=== PATIENT | male | born 1960 | race Caucasian/White ===

== ENCOUNTER 2020-12-11 09:15 | Inpatient (IN) | payer OTHER, SELFPAY ==
[2020-12-11] VITALS (35 sets, daily range): BP systolic 92–121; BP diastolic 52–68; PULSE 50–78; RESP 11–24; TEMP 36.2–36.8; O2SAT 97–100; BMI 25.0; BMI 23.3
--- NOTE | ~2020-12-11 | CT_ITS ---
EXAMINATION: CT brain wo con EXAM DATE: 12/11/2020 09:33 INDICATION: Altered mental status. Unresponsive at work. TECHNIQUE: Spiral CT of the head was performed without contrast. Axial, coronal and sagittal images were reviewed. The dose-length product (DLP) for this examination was 605.33 mGy-cm. The exposure w as tailored according to patient size, and iterative reconstruction (ASIR) was used as additional dos e reduction technique. There is no prior study for comparison. FINDINGS: There is right temporal occipital gyral calcification with ipsilateral volume loss. Differe ntial diagnosis includes Sturge-Dennison syndrome, other less common phakomatoses, prior leptomeningeal inflammation or infection. There is left frontal lobe periventricular white matter small old infarction measuring about 1 cm. T here is no acute intraparenchymal hemorrhage. No evidence of intraparenchymal brain mass lesion. No evidence of acute infarction. Please note that initial head CT has limited sensitivity for small or acute infarctions. There is mild to moderate periventricular and subcortical hypodensity, nonspecifi c but probably related to small vessel ischemic disease. There is mild prominence of the sulci and ventricles related to cerebral atrophy. There is intracranial carotid arteriosclerosis. There are no extra-axial collections. There is no mass effect or midline shift. The orbits are unremarkable. Soft tissue is unremarkable. The visualized sinuses and mastoid air cells are well aerated. IMPRESSION: 1. Right temporal occipital gyral calcification and volume loss, chronic finding. Some differential considerations listed above. 2. 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 3. Chronic age related findings. Reviewed, dictated and finalized at location A. STRIP FINISHER IMPRESSION: 1. Right temporal occipital gyral calcification and volume loss, chronic findi ng. Some differential considerations listed above. 2. 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 3. Chronic age related findings.
--- NOTE | ~2020-12-11 | XR_ITS ---
EXAMINATION: XR chest 1V portable EXAM DATE: 12/11/2020 09:57 INDICATION: Transient alteration of awareness. TECHNIQUE: Portable AP frontal chest x-ray was obtained. There is no prior study for comparison. FINDINGS: The lungs are clear. There are no pleural effusions. Cardiac silhouette is prominent but magnified on this AP technique. There is no pneumothorax suspected. The bones and soft tissues are unremarkable. IMPRESSION: No acute cardiopulmonary findings. Reviewed, dictated and finalized at location A. MANAGEMENT COORDINATOR
--- NOTE | ~2020-12-11 | MR_ITS ---
EXAMINATION: MR brain/brain stem wo con EXAM DATE: 12/12/2020 09:57 INDICATION: History of pediatric seizures, which resolved and then recent seizure. Abnormal head CT. TECHNIQUE: Magnetic resonance imaging (MRI) of the brain/brain stem obtained without contrast. Sagitt al T1, axial diffusion, gradient echo (T2*), T1, T2, FLAIR sequences obtained. Correlation is made t o head CT from 12/11/2020. 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 There is an old small left periventricular frontal lobe white matter i nfarction. Punctate old left thalamic lacunar infarction. There are no areas of restricted diffusion to suggest acute infarction. Mild to moderate microangiopathy. Mild ethmoid mucoperiosteal thickening . No extra-axial collections. There are no suspicious marrow signal abnormalities. The orbits and sof t tissues are unremarkable. IMPRESSION: 1. Old small left frontal lobe and punctate old left thalamic lacunar infarctions. 2. Right occipital temporal gyral calcifications better seen on CT, appearance most consistent with Sturge-Dennison syndrome. 3. No acute findings. Reviewed, dictated and finalized at location A. TES INSTRUCTOR IMPRESSION: 1. Old small left frontal lobe and punctate old left thalamic lacunar infarcti ons. 2. Right occipital temporal gyral calcifications better seen on CT, appearance most consistent with Sturge-Dennison syndrome. 3. No acute findings.
[2020-12-11] MEDS: ONDANSETRON INJ 4 MG/2 ML VIAL IV PUSH (09:15)
--- NOTE | 2020-12-11 09:17 | ECG_ITS ---
Measurements Intervals [place] Rate: 75 P: 50 MA: 128 QRS: 43 QRSD: 105 T: 90 QT: 396 QTc: 444 Interpretive Statements SINUS RHYTHM POSSIBLE LEFT ATRIAL ENLARGEMENT INCOMPLETE RIGHT BUNDLE BRANCH BLOCK LEFT VENTRICULAR HYPERTROPHY AND ST-T CHANGE BORDERLINE T WAVE ABNORMALITY- ANTEROLAT/HIGH LAT LEADS BASELINE WANDER- V3 BORDERLINE ECG Electronically Signed On 12-17-2020 7:05:22 MOLDER APPRENTICE by Daniel Srivastava D.O.
[2020-12-11 09:45] LABS: Alveolar/Arterial O2 Gradient 12.3 mmHg; Base Excess ABG -4.5 mEq/l (+/-2.0); Carboxyhemoglobin 0.3 % THb (0-2.0); Fractional Inspired Oxygen 21 %; HCO3 ABG 19.4 mEq/l (22.0-26.0); Methemoglobin ABG 0.3 %THb (0-1.5); Oxygen Content ABG 17.6 %vol (16.0-22.0); Oxygen Saturation ABG 97.6 % (95.0-100.0); Oxyhemoglobin 96.6 % THb (90.0-100.0); PCO2 ABG 32.1 mmHg (35.0-45.0); PO2 FiO2 Ratio Arterial Blood 4.71 %; Reduced Hemoglobin 2.8 %THb (0-5.0); Total Hemoglobin 12.9 g/dL (12.0-18.0); pH ABG 7.399 (7.350-7.450)
[2020-12-11 09:46] LABS: Device ROOM AIR; Site Drawn LEFT BRACHIAL
[2020-12-11 09:53] LABS: Basophils Percent Auto 0.5 % (0.2-1.2); Eosinophils Percent Auto 0.2 % (0-4.4); Hematocrit 41.6 % (42.0-52.0); Hemoglobin 13.5 g/dL (14.0-18.0); Immature Granulocyte Absolute 0.04 K/mm3 (0.00-0.031); Immature Granulocyte Percent A 0.5 % (0-0.5); Lymphocytes Percent Auto 13.6 % (18.3-44.2); Mean Corpuscular HGB Conc 32.5 g/dl (32-36); Mean Corpuscular Hemoglobin 30.6 pg (26-34); Mean Corpuscular Volume 94.3 fl (80-100); Monocytes Absolute Auto 0.6 K/mm3 (0.1-0.6); Monocytes Percent Auto 6.8 % (2.6-8.5); Neutrophils Absolute Auto 6.3 K/mm3 (1.3-6.7); Neutrophils Percent Auto 78.4 % (45.5-73.1); Platelet Count Result 276 k/mm3 (150-375); Red Blood Count 4.41 M/mm3 (4.6-6.20); White Blood Count 8.1 K/mm3 (4.5-10.0)
[2020-12-11 09:59] LABS: Add Urine Microscopic? YES; Appearance Urine Clear (Clear); Bilirubin Urine Negative (Negative); Blood Urine Negative (Negative); Color Urine Yellow (Yellow); Glucose Urine UA 1+ mg/dL (Negative); Ketones Urine Trace mg/dL (Negative); Leukocyte Esterase Ur Negative LEU/UL (Negative); Mucus Urine Rare /lpf; Nitrate Urine Negative (Negative); Protein Urine 2+ mg/dL (Negative); RBC Urine 0-2 /hpf (0-2); Specific Grav Ur 1.021 (1.001-1.035); Squamous Epithelial Cell Urine Rare /hpf (Few); Urobilinogen Urine Negative mg/dL (<2.0); WBC Urine 0-3 /hpf
[2020-12-11] MEDS: SODIUM CHLORIDE 0.9% IV 1,000 ML 999 ML IV CONT (10:01)
--- NOTE | 2020-12-11 10:02 | PC.NURSE ---
PT RESPONSIVE ONLY TO PAINFUL STIMULI, UNABLE TO OBTAIN, AX, MEDICATIONS OR HISTORY.
[2020-12-11 10:05] LABS: Prothrombin Time 13.7 Seconds (11.1-14.7)
[2020-12-11 10:06] LABS: Alanine Aminotransferase 24 U/L (4-50); Albumin Level 4.3 g/dL (3.5-5.1); Alkaline Phosphatase 91 U/L (38-126); Anion Gap 10 mmol/L (8-16); Aspartate Amino Transferase 34 U/L (17-59); Bilirubin,Total 0.6 mg/dL (0.2-1.3); Blood Urea Nitrogen 19 mg/dL (9-20); Calcium 8.8 mg/dL (8.4-10.2); Carbon Dioxide 21 mmol/L (22-30); Chloride 107 mmol/L (98-107); Estimated CRCL calculation 63 ml/min; Estimated Glomerular Filt Rate > 60; Glucose 213 mg/dL (75-110); Partial Thromboplastin Time 24.3 SECONDS (22.3-36.8); Potassium 3.7 mmol/L (3.4-5.0); Sodium 138 mmol/L (137-145)
[2020-12-11 10:14] LABS: Beta-Hydroxybutyrate/Acetoacetate 0.07 mmol/L (0.02-0.27)
[2020-12-11 10:27] LABS: Ammonia < 9 umol/L (9-30)
[2020-12-11 10:29] LABS: Ethanol < 10 mg/dL (<10)
[2020-12-11 10:39] LABS: Amphetamine Screen Urine Negative (Negative); Barbiturate Screen Urine Negative (Negative); Benzodiazepines Screen Urine Negative (Negative); Cannabinoid Screen Urine Negative (Negative); Cocaine Screen Urine Negative (Negative); Methadone Screen Urine Negative (Negative); Opiate Screen Urine Negative (Negative); Phencyclidine Screen Urine Negative (Negative)
[2020-12-11 10:40] LABS: Glucose Point of Care 201 (65-105)
--- NOTE | 2020-12-11 10:46 | PC.NURSE ---
ERP Amy at bedside for update, at this time pt responding to voice and answers questions appropriatly. see neuro assessment.
--- NOTE | 2020-12-11 11:25 | ED.GENADULT ---
HPI - General Adult General Chief complaint: Unspecified Stated complaint: unresponsive Time Seen by Provider: 12/11/20 09:16 History of Present Illness HPI narrative: Patient is a 60-year-old gentleman who presents the emergency department with chief complaint of altered mental status. Patient was at work today and found by other employees sitting in his desk foaming at the mouth. The patient had no generalized shaking when EMS arrived they found him to have constricted pupils and was minimally responsive. EMS assisted with bag valve ventilations on the patient initially as he had a very slow respiratory rate. He was given Narcan with no response. Upon arrival to the emergency department the patient did start to answer some questions and start moving all extremities. The patient then proceeded to sit up was somewhat confused initially but then started to be able to answer questions. Currently the patient states that he had a headache earlier this week and now just feels tired and sleepy. Related Data Home Medications Medication Instructions Recorded Confirmed atropine drp 12/11/20 Allergies Allergy/AdvReac Type Severity Reaction Status Date / Time No Known Allergies Allergy Verified 12/11/20 10:49 Review of Systems Review of Systems: Narrative: A 10 system review of systems was completed on the patient and is negative except for what is stated in the HPI. Nursing and ancillary documentation was reviewed. PMFSH Comments Patient reports that he had a seizure in the 1960s but currently is not on any medications and knows of any current medical problems Social history the patient is employed at the local [employer] Exam Narrative: Exam Narrative: GENERAL: Well-appearing, well-nourished, and in no acute distress. HEAD: Normocephalic, atraumatic. EYES: PERRLA and EOMI. ENT: Nares clear, no rhinorrhea or epistaxis. Mucous membranes moist. NECK: Supple. CHEST: Clear to auscultation. No respiratory distress. HEART: Regular rate and rhythm. No murmur heard. Normal peripheral pulses. ABDOMEN: Soft, nontender, nondistended, normal active bowel sounds. EXTREMITIES: Normal range of motion. No edema. SKIN: Warm, dry, no rash. NEURO: No focal deficits. Alert and oriented x3. PSYCH: Normal mood and affect. Course Course Emergency Course: Patient was initially very confused and very slow to respond felt this is most likely a postictal type state. CT head shows no evidence of acute intercranial pathology toxicology studies were also within normal limits. Vital Signs Vital signs: Vital Signs Temperature 36.8 C 12/11/20 09:10 Pulse Rate 67 12/11/20 09:10 Respiratory Rate 14 12/11/20 09:10 Blood Pressure 98/63 L 12/11/20 09:10 Pulse Oximetry 99 12/11/20 09:10 Temperature 36.8 C 12/11/20 09:10 Pulse Rate 68 12/11/20 11:28 Respiratory Rate 15 12/11/20 11:28 Blood Pressure 95/57 L 12/11/20 11:28 Pulse Oximetry 99 12/11/20 11:28 Medical Decision Making Vital Signs Vital Signs: Vital Signs Temperature 36.8 C 12/11/20 09:10 Pulse Rate 67 12/11/20 09:10 Respiratory Rate 14 12/11/20 09:10 Blood Pressure 98/63 L 12/11/20 09:10 Pulse Oximetry 99 12/11/20 09:10 Temperature 36.8 C 12/11/20 09:10 Pulse Rate 68 12/11/20 11:28 Respiratory Rate 15 12/11/20 11:28 Blood Pressure 95/57 L 12/11/20 11:28 Pulse Oximetry 99 12/11/20 11:28 Lab Data Result diagrams: 12/11/20 09:37 12/11/20 09:37 Labs: Lab Results 12/11/20 12/11/20 12/11/20 Range/Units 09:13 09:37 09:37 WBC 8.1 (4.5-10.0) K/mm3 RBC 4.41 L (4.6-6.20) M/mm3 Hgb 13.5 L (14.0-18.0) g/dL Hct 41.6 L (42.0-52.0) % MCV 94.3 (80-100) fl MCH 30.6 (26-34) pg MCHC 32.5 (32-36) g/dl RDW 13.0 (11.5-14.5) % Plt Count 276 (150-375) k/mm3 MPV 10.0 (7.4-10.4) fl Immature Gran % (Auto) 0.5 (0-0.5) % Neut % (Auto)
[2020-12-11] MEDS: levETIRAcetam 1000MG/NACL100ML 1,000 MG/100 ML BAG 400 MG IVPB (11:27)
--- NOTE | 2020-12-11 13:20 | PM.IMHP ---
H&P: HPI History of Present Illness Date/Time: 12/11/20 13:20 Chief Complaint: Unresponsive episode. Narrative: This is a 60-year-old male with history of single seizure in the who presented to the emergency department earlier this morning via EMS from his place of employment for evaluation after he was found unresponsive by coworkers. He is somnolent at the time my evaluation but is alert and oriented x4 and is able to provide a pretty good history. Unfortunately he does not remember what occurred this morning and thus some of the following information is obtained via his electronic medical records. it is my understanding that the patient called off of work the past 2 days due to a headache, which is very unusual for him. Today he was present at work and was found not long prior to arrival sitting in a chair, unresponsive and ?foaming at the mouth.? On EMS arrival he was not really responsive with hypopnea and pinpoint pupils. Narcan was given with no response. After some time he began to move around in the emergency department and eventually set up but was confused and appeared to be postictal. Again he is alert oriented at the time my evaluation in the only complaint he has is of fatigue and a mild headache. He denies fever, chills, sweats, neck ache, cold and flu symptoms, vertigo, focal weakness, paresthesias, fall, chest pain, pleuritic pain, and shortness of breath. He does not drink alcohol or take benzodiazepines. No new medications. Review of Systems Review of Systems: Narrative: Twelve systems were reviewed with pertinent positives and negatives as per HPI. No chest pain or shortness of breath. He denies nausea, vomiting, diarrhea. No dysuria. 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 Except as documented, all other systems were reviewed and are negative. PENDING SALE TO [facility] Past Medical History Medical History (Updated 12/11/20 @ 21:49 by Garima Perez PA-C) Glaucoma Seizure Single seizure in the . Surgical History Surgical History (Updated 12/11/20 @ 21:43 by Garima Perez PA-C) History of tonsillectomy Family History Family History (Updated 12/11/20 @ 21:44 by Garima G. Gerling, PA-C) Other No significant family history Social History Social History (Updated 12/11/20 @ 21:44 by Garima Perez PA-C) Social History: The patient lives alone in [place]. Lifelong nonsmoker. No alcohol or illicit substance use. 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 He designates his sister, Bety Wang, as his surrogate decision maker and he wishes to be a full code. Spiritual care concerns: No Meds Home Medications and Allergies Home Medications Medication Instructions Recorded Confirmed Type latanoprost 1 drp RIGHTEYE HS 12/11/20 12/11/20 History Allergies Allergy/AdvReac Type Severity Reaction Status Date / Time No Known Allergies Allergy Verified 12/11/20 14:44 Vital Signs Vital Signs - 24 hr 12/11/20 09:10 12/11/20 09:17 12/11/20 09:40 Temperature 98.2 F Pulse Rate 67 78 64 Respiratory Rate 14 14 16 Blood Pressure 98/63 L Pulse Oximetry 99 99 100 12/11/20 09:45 12/11/20 09:46 12/11/20 09:47 Temperature Pulse Rate 68 68 67 Respiratory Rate 11 L 16 13 Blood Pressure 121/65 Pulse Oximetry 100 100 100 12/11/20 10:00 12/11/20 10:01 12/11/20 10:17 Temperature Pulse Rate 61 61 50 L Respiratory Rate 18 16 13 Blood Pressure 93/60 L Pulse Oximetry 100 100 100 12/11/20 10:45 12/11/20 11:00 12/11/20 11:01 Temperature Pulse Rate 58 L 59 L 55 L Respiratory Rate 13 15 12 Blood Pressure 92/59 L Pulse Oximetry 100 99 97 12/11/20 11:23 12/11/20 11:28 12/11/20 11:30 Temperature Pulse Rate 56 L 68 54 L Respiratory Rate 15 15 13 Blood Pressure 95/57 L Pulse Oximetry 99 99 100 12/11/20 11:31 12/11/20 11:45 12/11/20 11:46
--- NOTE | 2020-12-11 14:26 | ADMGEN ---
This patient, Yordan Wang, was admitted to Medical Room 340-01. Patient/family oriented to hospital policies and general routines including ID bracelet, bed and alarms, visiting hours, pain management, procedures, bathroom and other care routines, personal items, smoking policy, room service/diet, and visiting hours. Information on how to activate the Rapid Response Team has been discussed. Patient/Family are encouraged to report perceived risks to care and to ask questions if they do not understand what they are told or what they should do.
[2020-12-11] MEDS: levETIRAcetam 500 MG TABLET PO (22:05)
[2020-12-11] MEDS: LATANOPROST 0.005% OP SOLN 2.5 ML BTL 1 DROP RIGHT EYE (22:06)
[2020-12-12] VITALS (9 sets, daily range): BP systolic 102–152; BP diastolic 50–77; PULSE 53–99; RESP 14–16; TEMP 36.5–37; O2SAT 97–100
[2020-12-12 06:41] LABS: Hematocrit 37.6 % (42.0-52.0); Hemoglobin 12.4 g/dL (14.0-18.0); Mean Corpuscular Hemoglobin 30.5 pg (26-34); Mean Corpuscular Volume 92.6 fl (80-100); Mean Platelet Volume 10.3 fl (7.4-10.4); Platelet Count Result 231 k/mm3 (150-375); Red Blood Count 4.06 M/mm3 (4.6-6.20); Red Cell Distribution Width 12.9 % (11.5-14.5); White Blood Count 10.3 K/mm3 (4.5-10.0)
[2020-12-12 07:06] LABS: Alanine Aminotransferase 19 U/L (4-50); Albumin Level 3.7 g/dL (3.5-5.1); Alkaline Phosphatase 64 U/L (38-126); Anion Gap 5 mmol/L (8-16); Aspartate Amino Transferase 41 U/L (17-59); Bilirubin,Total 0.8 mg/dL (0.2-1.3); Blood Urea Nitrogen 15 mg/dL (9-20); Calcium 8.9 mg/dL (8.4-10.2); Carbon Dioxide 26 mmol/L (22-30); Chloride 106 mmol/L (98-107); Estimated CRCL calculation 66 ml/min; Estimated Glomerular Filt Rate > 60; Glucose 90 mg/dL (75-110); Potassium 3.8 mmol/L (3.4-5.0); Sodium 137 mmol/L (137-145)
[2020-12-12] MEDS: levETIRAcetam 500 MG TABLET PO ×2 (08:47→20:25)
--- NOTE | 2020-12-12 10:44 | PM.IMPN ---
Progress Note: A&P Assessment and Plan (1) Altered mental status: Qualifiers: Altered mental status type: unspecified Qualified Code(s): R41.82 - Altered mental status, unspecified Code(s): R41.82 - Altered mental status, unspecified Status: Acute (2) Unresponsive episode: Code(s): R41.89 - Other symptoms and signs involving cognitive functions and awareness Status: Acute (3) Seizure: Code(s): R56.9 - Unspecified convulsions Status: Acute (4) Hyperglycemia: Code(s): R73.9 - Hyperglycemia, unspecified Status: Acute (5) Glaucoma: Code(s): H40.9 - Unspecified glaucoma Status: Acute (6) DVT prophylaxis: Code(s): Z29.9 - Encounter for prophylactic measures, unspecified Status: Acute Assessment and Plan: SCDs Additional Plan The patient was brought to the emergency department after he was found unresponsive and ?foaming at the mouth? in a chair at work on 12/11. Given his confusion upon waking and remote history of seizure, it was suspect he probably had another seizure and was postictal in the emergency department. UDS negative. He denies excessive alcohol use. UA unremarkable. Brain CT showed a chronic finding of right temporal occipital gyral calcification and volume loss, and old left frontal lobe periventricular white matter small old infarction measuring about 1 cm, and chronic age related findings. 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 He has been started on Keppra and Dr. Padilla (neurology) was consulted. The patient was monitored on telemetry but no cardiac dysrhythmia noted. Echocardiogram and brain MRI pending. Glucose elevated at 213 on admission but felt to be stress response. Repeat glucose nomral. A1c 5.0. TSH normal. MRI brain showing no acute findings but does show old small left frontal lobe and punctate old left thalamic lacunar infarctions and right occipital temporal gyral calcifications (consistent with Sturge-Dennison syndrome). Echo showing EF 65-70%, Grade 1 diastolic dysfunction and severe aortic valve stenosis with valve area 0.5-0.7cm2. Also a questionable mobile mass on the Mitral valve. Cardiology consult for possible LUANNE to further evaluate valves. Check BCx. Spoke with sister and she was informed of these findings. She states the patient has been having increasing SOB with exertion over the past 4-5 months. Subjective Date/time seen: 12/12/20 10:44 Interval history: Date of service 12/12 60-year-old male with remote history of seizure brought to the emergency room after being found unresponsive. Spoke with sister on the phone with patient's permission. Patient had a fall with close head injury in 1964r. It sounds as if he had traumatic brain injury. Sister states he was having 15-20 seizures a day. His last seizure was when he was 7 to 9 years old. Patient does not drive because of his glaucoma. He normally walks unassisted. No history of stroke. No problems overnight. He was been up walking the bathroom earlier today. Denies any weakness. Exam Narrative: Exam Narrative: AF 98.6 152/76 99 14 99% ra Gen - NARD HEENT -large port-wine stain involving majority of his face and into the neck Chest - CTA bilaterally, nml RR CV - RRR S1/S2; Tele showing no significant dysrhythmias Abd - Soft, NT/ND, Positive BS Ext - No pedal edema, 2+ DP bilaterally Neuro - Alert and oriented x4. Nonfocal exam. Psych - Nml mood and affect Skin - Warm and dry; large port wine stain right buttock extending lateral aspect to right foot. Objective Data Vital Signs Vital Signs: Vital Signs - 24 hr 12/11/20 10:45 12/11/20 11:00 12/11/20 11:01 Temperature Pulse Rate 58 L 59 L 55 L Respiratory Rate 13 15 12 Blood Pressure 92/59 L Pulse Oximetry 100 99 97 12/11/20 11:23 12/11/20 11:28 12/11/20
--- NOTE | 2020-12-12 16:36 | PC.NURSE ---
1500 Patient s sister, Bety Wang, took with her the patient s wallet and all cards in it including his identification card. She was given permisson to visit because she voiced that he is mentally challenged and takes care of him regarding his health.
[2020-12-12] MEDS: BRIMONIDINE TARTRATE 0.2% OP SOLN 5 ML BTL 1 DROP RIGHT EYE (20:26)
[2020-12-12] MEDS: LATANOPROST 0.005% OP SOLN 2.5 ML BTL 1 DROP RIGHT EYE (20:26)
--- NOTE | 2020-12-12 21:54 | ECHO_ITS ---
Patient Info Name: Yordan Wang Age: 60 years : 1960 Gender: Male Ht: 65 in Wt: 130 lbs BSA: 1.65 m2 HR: 70 bpm BP: 152 / 76 mmHg Heart Rhythm: Sinus Rhythm Technical Quality: Good Exam Date: 12/12/2020 7:21 AM Exam Location: [facility] Patient Status: Inpatient Admit Date: 12/11/2020 Staff Ordering Physician: Garima Perez PA-C Manager Action: Kristy Valdez RDCS Attending Provider: Chaim Keith MD Referring Physician: Chris CARLOS; Exam Type: CA echo doppler color flow Study Info Complete two-dimensional, color flow and Doppler transthoracic echocardiogram is performed. Summary 1. Complete two-dimensional, color flow and Doppler transthoracic echocardiogram is performed. 2. Normal left ventricular size with moderate concentric hypertrophy present. Good left ventricular systolic function with an estimated ejection fraction of 65-70%, with no wall motion abnormalities. Grade 1 diastolic dysfunction is present. 3. Left atrial chamber dimension is moderately enlarged. 4. There is severe aortic valve stenosis with a peak velocity of 4.5-4.9 m/sec, mean gradient of 41-56 mmHg, and aortic valve area of 0.5 -0.7 cm2. Heavily calcified valve, probably trileaflet. 5. Moderately calcified mitral valve annulus. Questionable mobile mass noted on supravalvular annulus, medially at the lower atrial septum, seen in only the apical 4 chamber view, 1.4 X 0.5 cm. This may be a vegetation, though it may also be apart of the calcified annulus. Clinical correlation needed. 6. There is mild mitral valve regurgitation. Possible mobile mass on mitral valve as above; reviewed w/ screening tech. 7. There is mild aortic atherosclerosis. 8. Normal sinus rhythm. 9. Consider LUANNE for further evaluation to r/o mitral valve vegetation. Left Ventricle Left ventricular chamber dimension is normal. Left ventricular systolic function is normal, estimated at 65-70%. There is moderately increased left ventricular wall thickness. Left ventricular septal wall motion is normal. The left ventricular diastolic function is normal. Right Ventricle Right ventricular chamber dimension is normal. Right ventricular systolic function is normal. Left Atria Left atrial chamber dimension is moderately enlarged. Right Atria Right atrial chamber dimension is normal. Aortic Valve The aortic valve is probable trileaflet. There is no aortic valve sclerosis. There is severe aortic valve stenosis with a peak velocity of 4.5-4.9 m/sec, mean gradient of 41-56 mmHg, and aortic valve area of 0.5 -0.7 cm2. Heavily calcified valve, probably trileaflet. There is no aortic valve regurgitation. There is severe aortic valve calcification. Pulmonic Valve The pulmonic valve is normal. There is no pulmonic valve stenosis. There is trace pulmonic regurgitation. Mitral Valve The mitral valve has calcified annulus. There is no mitral valve stenosis. There is mild mitral valve regurgitation. Possible mobile mass on mitral valve as above; reviewed w/ screening tech. Tricuspid Valve The tricuspid valve leaflets are normal. There is no significant tricuspid valve stenosis. There is trace tricuspid valve regurgitation. No pulmonary hypertension, estimated pulmonary arterial systolic pressure is Empty. Pericardium/Pleural The pericardium appears normal. There is no pericardial effusion. Inferior Vena Cava Normal inferior vena cava with >50% collapse upon inspiration consistent with Empty righ
[2020-12-13] VITALS (9 sets, daily range): BP systolic 92–128; BP diastolic 58–72; PULSE 58–105; RESP 12–20; TEMP 36–36.7; O2SAT 95–100
[2020-12-13 06:46] LABS: CRP 0.9 mg/dL (<1.0)
[2020-12-13 08:24] LABS: Erythrocyte Sedimentation Rate 26 mm/hr (0-20)
[2020-12-13] MEDS: levETIRAcetam 500 MG TABLET PO ×2 (09:11→20:14)
[2020-12-13] MEDS: BRIMONIDINE TARTRATE 0.2% OP SOLN 5 ML BTL 1 DROP RIGHT EYE ×2 (09:11→20:14)
--- NOTE | 2020-12-13 09:59 | PM.IMPN ---
Progress Note: A&P Assessment and Plan (1) Altered mental status: Qualifiers: Altered mental status type: unspecified Qualified Code(s): R41.82 - Altered mental status, unspecified Code(s): R41.82 - Altered mental status, unspecified Status: Acute (2) Unresponsive episode: Code(s): R41.89 - Other symptoms and signs involving cognitive functions and awareness Status: Acute (3) Seizure: Code(s): R56.9 - Unspecified convulsions Status: Acute (4) Hyperglycemia: Code(s): R73.9 - Hyperglycemia, unspecified Status: Acute (5) Glaucoma: Code(s): H40.9 - Unspecified glaucoma Status: Acute (6) DVT prophylaxis: Code(s): Z29.9 - Encounter for prophylactic measures, unspecified Status: Acute Assessment and Plan: SCDs Additional Plan The patient was brought to the emergency department after he was found unresponsive and ?foaming at the mouth? in a chair at work on 12/11. Given his confusion upon waking and remote history of seizure, it was suspect he probably had another seizure and was postictal in the emergency department. UDS negative. He denies excessive alcohol use. UA unremarkable. Brain CT showed a chronic finding of right temporal occipital gyral calcification and volume loss, and old left frontal lobe periventricular white matter small old infarction measuring about 1 cm, and chronic age related findings. 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 He was started on Keppra and Dr. Padilla (neurology) was consulted. The patient monitored on telemetry but no cardiac dysrhythmia noted. Glucose elevated at 213 on admission but felt to be stress response. Repeat glucose normal. A1c 5.0. TSH normal. MRI brain showing no acute findings but does show old small left frontal lobe and punctate old left thalamic lacunar infarctions and right occipital temporal gyral calcifications (consistent with Sturge-Dennison syndrome). Echo showing EF 65-70%, Grade 1 diastolic dysfunction and severe aortic valve stenosis with valve area 0.5-0.7cm2. Also a questionable mobile mass on the Mitral valve. Cardiology consulted for possible LUANNE to further evaluate valves. Check BCx. Spoke with sister and she was informed of these findings 12/12. She states the patient has been having increasing SOB with exertion over the past 4-5 months. BCx results pending; BCx repeated today as well. ESR 26 with normal CRP. Cardiology to see. If no LUANNE, then can be discharged with followup LUANNE. Subjective Date/time seen: 12/13/20 09:59 Interval history: Date of service 12/13 60-year-old male with remote history of seizure brought to the emergency room after being found unresponsive. No CP. He is eating well. No issues overnight. Not been out of bed yet this morning. Patient has been having SOB with activity that has worsened over the past 4 months per sister. 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 Objective Data Vital Signs Vital Signs: Vital Signs - 24 hr 12/12/20 12:00 12/12/20 14:00 12/12/20 16:00 Temperature 97.7 F Pulse Rate 62 55 L 85 Respiratory Rate 16 Blood Pressure 102/50 L Pulse Oximetry 100 12/12/20 19:56 12/12/20 20:00 12/13/20 00:00 Temperature 97.8 F Pulse Rate 83 84 73 Respiratory Rate 14 Blood Pressure 126/77 Pulse Oximetry 97 12/13/20 04:00 12/13/20 05:17 12/13/20 08:00 Temperature 96.8 F
--- NOTE | 2020-12-13 11:06 | PM.CNCAR ---
Assessment and Plan Assessment and plan (1) Aortic stenosis: Code(s): I35.0 - Nonrheumatic aortic (valve) stenosis Status: Acute Assessment and Plan: Patient presents with severe aortic stenosis which is symptomatic. Strangely it does not appear to be a bicuspid valve at least by transthoracic echo, which I would of expected in this age range. He will need a valve replacement and we will work to see if this can be done transcutaneously w/ TAVR or if he will need a SAVR. Discussed at length with the patient and his sister Bety. Yes this can be a life-threatening problem and is progressive. Yes there is a risk of sudden cardiac but low. Yes I would recommend some limitation in physical activity and work restrictions until this is repaired. (No lifting and carrying of > 30#, no pushing/pulling of > 50#, no walking more than 100 yds w/o stopping to rest for example). Certainly if he has symptoms of RAMOS or chest tightness he should stop and rest. We will do a LUANNE tomorrow and then set him up for follow-up with Dr. Alvarado or Anna (who do TAVR), likely he will need a cardiac catheterization and other testing such as CT scan before definitive therapy with valve replacement so the whole process often takes several weeks or months. (2) Abnormal echocardiogram: Code(s): R93.1 - Abnormal findings on diagnostic imaging of heart and coronary circulation Status: Acute Assessment and Plan: The echo suggested he may have a mobile mass associated with the mitral valve annulus, rule out endocarditis. Clinically he does not appear to have endocarditis. Will do a LUANNE tomorrow for further evaluation. (3) Seizure: Code(s): R56.9 - Unspecified convulsions Status: Acute Assessment and Plan: Infrequent sz, had presumed sz on admission. (4) Abnormal head CT: Code(s): R93.0 - Abnormal findings on diagnostic imaging of skull and head, not elsewhere classified Status: Acute Assessment and Plan: Abnormal head CT with old infarcts. Perhaps related to the trauma he had as a child? May have Sturge-Dennison disease per Dr. Keith. Or perhaps he does have endocarditis? History of Present Illness History of Present Illness Consult date/time: 12/13/20 11:06 Requesting physician: Chaim Keith MD Consult reason: aortic stenosis Reason For Visit: altered mental status, seizures Narrative: DAte of SErvice: 12/13/2020 Yordan Wang is a 60 y.o. male admitted with altered metal status thought to be 2nd a seizure. He has had infrequent seizures since a child. We've been asked to see him at the request of DR. Kieth because of his aortic stenosis and abnormal Echo, suggesting a MV vegetation, in consultation. The patient has no history of an heart disease or heart murmur. However his echocardiogram showed severe aortic stenosis 4.5 m/sec, mean gradient of at least 41 mm Hg and a valve area of 0.5-0.7 cm2. Also there was a possible mobile mass on his mitral valve suggesting and vegetation. He has had no fevers. He has noted exertional dyspnea and some tightness in his chest with walking. 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 No hypertension diabetes or elevated cholesterol. Mr Wang has some intellectual disability and some history was obtained fr his sister Bety (POA), and Dr Keith. Review of Systems Constitutional: Constitutional: Denies chills, Denies fatigue, Denies night sweats and Denies weakness Eyes: Eyes: Reports blurry vision (History of glaucoma and surgeries for glaucoma) ENT: Denies epistaxis and Denies nasal congestion Cardiovascular: Cardiovascular: Reports chest pa
--- NOTE | 2020-12-13 13:10 | WPDNEURCNPN ---
Assessment and Plan Assessment and plan (1) Abnormal head CT: Code(s): R93.0 - Abnormal findings on diagnostic imaging of skull and head, not elsewhere classified Status: Acute (2) Abnormal echocardiogram: Code(s): R93.1 - Abnormal findings on diagnostic imaging of heart and coronary circulation Status: Acute (3) Aortic stenosis: Code(s): I35.0 - Nonrheumatic aortic (valve) stenosis Status: Acute (4) Seizure: Code(s): R56.9 - Unspecified convulsions Status: Acute (5) History of Sturge-Dennison syndrome: Code(s): Z86.79 - Personal history of other diseases of the circulatory system Status: Acute Additional Plan history Diederich Dennison syndrome with documented abnormal MRI that is calcification, will obviously ideal candidate for having seizures and will need the long-term anticonvulsant as such otherwise no surgical intervention is necessary Consult date: 12/13/20 Time Seen: 13:00 HPI: Yordan Wang is a 60 year old male admitted to the hospital for the ongoing diagnosis of seizure disorder since reportedly he was found unresponsive coworkers and subsequently was noted least somnolent patient had called off work for last 48 hours due to the headache and when he went to the work he was found unresponsive foaming around the mouth sitting in chair. Patient has ongoing history of seizure disorder in addition to glaucoma and history of 1 single seizure in evaluation up until now documented very mild leukocytosis with hemoglobin 12.4 platelet count 231, crit of 26 normal electrolytes with serum ammonia level less than 9 on admission drug toxicology negative with alcohol level less than 10 all the cultures are pending, initial CT scan with old small left periventricular infarction in addition to right temporal occipital gyral calcification and volume loss, MRI which was better seen on CT scan with the finding suggestive of underlying Sturge-Dennison syndrome and echocardiogram with left atrial chamber dimension moderately enlarged severe aortic valvular stenosis moderately calcified mitral valve annulus with regurgitation and aortic atherosclerosis for which LUANNE has been suggested and chest x-ray is negative Review of Systems Review of Systems: All systems reviewed & are unremarkable except as noted in HPI and below PMFSH Past Medical History Medical History Aortic stenosis Glaucoma Head injury Head trauma as a child. Seizure Single seizure in the . Surgical History Surgical History H/O eye surgery History of tonsillectomy Family History Family History Father Heart disease Diabetes mellitus Other No significant family history Social History Social History Social History: The patient lives alone in [place]. Lifelong nonsmoker. No alcohol or illicit substance use. 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 He designates his sister, Bety Wang, as his surrogate decision maker and he wishes to be a full code. Spiritual care concerns: No Meds Home Medications and Allergies Home Medications Medication Instructions Recorded Confirmed Type latanoprost 1 drp RIGHTEYE HS 12/11/20 12/11/20 History brimonidine 1 drp RIGHTEYE BID 12/12/20 12/12/20 History latanoprostene bunod [Vyzulta] 1 drp RIGHTEYE DAILY 12/13/20 12/13/20 History Allergies Allergy/AdvReac Type Severity Reaction Status Date / Time No Known Allergies Allergy Verified 12/11/20 14:44 Vital Signs Vital Signs - 24 hr 12/12/20 14:00 12/12/20 16:00 12/12/20 19:56 Temperature 36.5 C 36.6 C Pulse Rate 55 L 85 83 Respiratory Rate 16 14 Blood Pressure 102/50 L 126/77 Pulse Oximetry 100 97 12/12/20 20:00 12/13/20 00:00 12/13/20 04:00 Temperature Pulse Rate 84 73 59
--- NOTE | 2020-12-13 18:24 | PHAR ---
The patient's home med of Vyzulta 0.024% optic daily one drop right eye has been verified.
[2020-12-13] MEDS: LATANOPROST 0.005% OP SOLN 2.5 ML BTL 1 DROP RIGHT EYE (20:14)
[2020-12-14] VITALS (27 sets, daily range): BP systolic 83–119; BP diastolic 54–82; PULSE 59–81; RESP 12–20; TEMP 36–36.8; O2SAT 92–100
--- NOTE | 2020-12-14 | ECHO_ITS ---
Patient Info Name: Yordan Wang Age: 60 years : 1960 Gender: Male Ht: 65 in Wt: 140 lbs BSA: 1.71 m2 HR: 87 bpm BP: 99 / 69 mmHg Heart Rhythm: Sinus Rhythm Technical Quality: Good Exam Date: 12/14/2020 11:07 AM Exam Location: [facility] Patient Status: Inpatient Admit Date: 12/13/2020 Staff Ordering Physician: Torrey Ford MD Saw Operator: Luis Castillo [facility] Attending Provider: Chaim Keith MD Referring Physician: Liliana GREGORIO; Exam Type: CA echo transesophageal Study Info Indications I35.0 - Nonrheumatic aortic (valve) stenosis Complete two-dimensional, color flow and Doppler transesophageal study is performed. History/Risk Factors Aortic stenosis. Summary 1. Left ventricular hypertrophy with normal systolic function. 2. Severe aortic valve stenosis plan a bitter valve area 0.8 cm2. 3. Trivial aortic regurgitation. 4. Trivial mitral regurgitation with mitral annular calcification. 5. LUANNE demonstrates no evidence of any mass associated with the mitral valve apparatus. Aortic Valve Name Value Normal AV 2D/MM AV Area (Planimetry) 0.7 cm2 Report Signatures
--- NOTE | 2020-12-14 08:57 | PC.NURSE ---
Dipti in chest pain stated pt can receive morning meds with small sip of water before LUANNE.
[2020-12-14] MEDS: levETIRAcetam 500 MG TABLET PO ×2 (09:00→21:22)
[2020-12-14] MEDS: BRIMONIDINE TARTRATE 0.2% OP SOLN 5 ML BTL 1 DROP RIGHT EYE ×2 (09:04→21:22)
--- NOTE | 2020-12-14 10:04 | WPDMODSED ---
Moderate Sedation Note-Pt Data Patient Data Diagnosis: Symptomatic aortic stenosis Questionable mitral valve lesion Present Complaint: 60-year-old patient presenting with exertional dyspnea. Patient has complex medical history. Esophageal echo recommended for today to clarify aortic and mitral valve disease. Procedure to be performed/Plan: Transesophageal echocardiogram Allergies Allergy/AdvReac Type Severity Reaction Status Date / Time No Known Allergies Allergy Verified 12/11/20 14:44 Home Medications Medication Instructions Recorded Confirmed Type latanoprost 1 drp RIGHTEYE HS 12/11/20 12/11/20 History brimonidine 1 drp RIGHTEYE BID 12/12/20 12/12/20 History brinzolamide [Azopt] 1 drp RIGHTEYE BID 12/13/20 12/13/20 History latanoprostene bunod [Vyzulta] 1 drp RIGHTEYE DAILY 12/13/20 12/13/20 History Current Medications: Active Medications Brimonidine Tartrate (Brimonidine Tartrate 0.2% Op Soln 5 Ml Btl) 1 drop RIGHT EYE Q12HR [facility] Last Admin: 12/14/20 09:04 Dose: 1 drop Documented by: Latanoprost (Latanoprost 0.005% Op Soln 2.5 Ml Btl) [address] [facility] Last Admin: 12/13/20 20:14 Dose: 1 drop Documented by: Levetiracetam (Levetiracetam 500 Mg Tablet) 500 mg PO Q12HR [facility] Last Admin: 12/14/20 09:00 Dose: 500 mg Documented by: Sedation/Anesthesia: No previous sedation/anesthesia problems (including family history). [facility] Past Medical History Medical History Aortic stenosis Glaucoma Head injury Head trauma as a child. Seizure Single seizure in the 1960s. Surgical History Surgical History H/O eye surgery History of tonsillectomy Family History Family History Father Heart disease Diabetes mellitus Other No significant family history Social History Social History Social History: The patient lives alone in [place]. Lifelong nonsmoker. No alcohol or illicit substance use. 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 He designates his sister, Bety Wang, as his surrogate decision maker and he wishes to be a full code. Spiritual care concerns: No Mod Sed Physical Exam Physical Exam Pre Procedural Exam: Normal: Appearance, Throat, Airway, Lungs, Heart Size, Heart Rate, Heart Rhythm (Grade 2-3 systolic crescendo decrescendo murmur compatible with aortic valve stenosis), Neuro Exam and Extremities Hours since solid foods: 12 Hours since liquid intake: 12 Internal Medicine - PN: Obj Da Vital Signs Vital Signs: Vital Signs - 24 hr 12/13/20 12:00 12/13/20 14:00 12/13/20 16:00 Temperature 36.7 C Pulse Rate 76 72 105 H Respiratory Rate 20 Blood Pressure 128/72 Pulse Oximetry 100 12/13/20 19:38 12/13/20 20:00 12/14/20 00:00 Temperature 36.2 C L Pulse Rate 89 80 66 Respiratory Rate 12 Blood Pressure 102/59 L Pulse Oximetry 96 12/14/20 02:05 12/14/20 04:00 12/14/20 06:10 Temperature 36.7 C 36.8 C Pulse Rate 61 59 L 78 Respiratory Rate 12 12 Blood Pressure 99/64 L 112/68 Pulse Oximetry 98 98 12/14/20 08:00 12/14/20 09:12 Temperature Pulse Rate 77 Respiratory Rate Blood Pressure Pulse Oximetry 93 Intake/Output Intake/Output: Intake & Output 12/11/20 12/12/20 12/13/20 12/14/20 23:59 23:59 23:59 23:59 Intake Total 3527 707 3992 600 Output Total 200 700 600 Balance 408 770 4930 600 Meds/Results Medications: Active Medications Generic Name Dose Route Start Last Admin Trade Name Freq PRN Reason Stop Dose Admin Brimonidine Tartrate 1 drop 12/12/20 21:00 12/14/20 09:04 Brimonidine Tartrate 0.2% Op Soln 5 Ml Btl RIGHT EYE 1 drop Q12HR CHRISTOPHE Administration Latanoprost 1 drop 12/11/20 21:00 12/13/20 20:14 Latanoprost 0.005% Op Soln 2.5 Ml Btl RIGHT EYE 1 drop HS CHRISTOPHE Administration Levetiracetam 5
--- NOTE | 2020-12-14 10:27 | WPDMODSED ---
Moderate Sedation Note-Pt Data Patient Data Diagnosis: Severe aortic valve stenosis questionable mitral valve mass Present Complaint: exertional dyspnea Procedure to be performed/Plan: transesophageal echocardiogram Allergies Allergy/AdvReac Type Severity Reaction Status Date / Time No Known Allergies Allergy Verified 12/11/20 14:44 Home Medications Medication Instructions Recorded Confirmed Type latanoprost 1 drp RIGHTEYE HS 12/11/20 12/11/20 History brimonidine 1 drp RIGHTEYE BID 12/12/20 12/12/20 History brinzolamide [Azopt] 1 drp RIGHTEYE BID 12/13/20 12/13/20 History latanoprostene bunod [Vyzulta] 1 drp RIGHTEYE DAILY 12/13/20 12/13/20 History Current Medications: Active Medications Brimonidine Tartrate (Brimonidine Tartrate 0.2% Op Soln 5 Ml Btl) 1 drop RIGHT EYE Q12HR [facility] Last Admin: 12/14/20 09:04 Dose: 1 drop Documented by: Latanoprost (Latanoprost 0.005% Op Soln 2.5 Ml Btl) 1 drop RIGHT EYE [facility] Last Admin: 12/13/20 20:14 Dose: 1 drop Documented by: Levetiracetam (Levetiracetam 500 Mg Tablet) 500 mg PO Q12HR [facility] Last Admin: 12/14/20 09:00 Dose: 500 mg Documented by: Sedation/Anesthesia: No previous sedation/anesthesia problems (including family history). [facility] Past Medical History Medical History Aortic stenosis Glaucoma Head injury Head trauma as a child. Seizure Single seizure in the 1960s. Surgical History Surgical History H/O eye surgery History of tonsillectomy Family History Family History Father Heart disease Diabetes mellitus Other No significant family history Social History Social History Social History: The patient lives alone in [place]. Lifelong nonsmoker. No alcohol or illicit substance use. 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 He designates his sister, Bety Wang, as his surrogate decision maker and he wishes to be a full code. Spiritual care concerns: No Mod Sed Physical Exam Physical Exam Pre Procedural Exam: Normal: Appearance ( chronically ill-appearing man no distress), Neck ( carotid impulses are delayed and diminished), Throat, Airway, Lungs, Heart Size, Heart Rate, Heart Rhythm and Extremities Hours since solid foods: 12 Hours since liquid intake: 12 Internal Medicine - PN: Obj Da Vital Signs Vital Signs: Vital Signs - 24 hr 12/13/20 12:00 12/13/20 14:00 12/13/20 16:00 Temperature 36.7 C Pulse Rate 76 72 105 H Respiratory Rate 20 Blood Pressure 128/72 Pulse Oximetry 100 12/13/20 19:38 12/13/20 20:00 12/14/20 00:00 Temperature 36.2 C L Pulse Rate 89 80 66 Respiratory Rate 12 Blood Pressure 102/59 L Pulse Oximetry 96 12/14/20 02:05 12/14/20 04:00 12/14/20 06:10 Temperature 36.7 C 36.8 C Pulse Rate 61 59 L 78 Respiratory Rate 12 12 Blood Pressure 99/64 L 112/68 Pulse Oximetry 98 98 12/14/20 08:00 12/14/20 09:12 Temperature Pulse Rate 77 Respiratory Rate Blood Pressure Pulse Oximetry 93 Intake/Output Intake/Output: Intake & Output 12/11/20 12/12/20 12/13/20 12/14/20 23:59 23:59 23:59 23:59 Intake Total 4169 758 8101 600 Output Total 200 700 600 Balance 200 945 7894 600 Meds/Results Medications: Active Medications Generic Name Dose Route Start Last Admin Trade Name Freq PRN Reason Stop Dose Admin Brimonidine Tartrate 1 drop 12/12/20 21:00 12/14/20 09:04 Brimonidine Tartrate 0.2% Op Soln 5 Ml Btl RIGHT EYE 1 drop Q12HR CHRISTOPHE Administration Latanoprost 1 drop 12/11/20 21:00 12/13/20 20:14 Latanoprost 0.005% Op Soln 2.5 Ml Btl RIGHT EYE 1 drop HS CHRISTOPHE Administration Levetiracetam 500 mg 12/11/20 21:00 12/14/20 09:00 Levetiracetam 500 Mg Tablet PO 500 mg Q12HR CHRISTOPHE Administration Radiology Results: ITS Impressions He
--- NOTE | 2020-12-14 10:55 | PC.NURSE ---
Pt to cardiac laboratory immunologist for LUANNE per bed.
--- NOTE | 2020-12-14 11:27 | P.PCNCC_ITS ---
Cardiac Cath Procedure Note Date of procedure:: 12/14/20 Performing physician:: Torrey Ford MD Indication:: Aortic valve stenosis, rule out mitral valve mass Brief clinical history:: this is a 60-year-old patient reporting symptoms of RAMOS. He has been found to have severe aortic stenosis by echo and this study is interpreted as a possible mitral valve mass as well. LUANNE was recommended for further evaluation of this Procedure Procedure performed:: transesophageal echocardiogram Sedation/Medication given:: fentanyl 50 mg Versed 4 mg case start time 11:11 a.m. case end time 11:23 a.m. sedation provided by Chary Murray RN, trained observer Estimated blood loss:: no blood loss Procedure note:: the patient was brought to the cardiac catheterization lab holding area where he was in the postabsorptive state and placed in the supine position. The oropharynx was sprayed with Cetacaine and the patient was then sedated with a total dosage of 50 mg of fentanyl and 4 mg of Versed in aliquots which provided excellent procedural sedation. The esophagus was then intubated using the LUANNE probe and the images were obtained in an uneventful fashion. Planimetry was done of the aortic valve is well. The LUANNE probe was then removed and patient is recovering uneventfully. Findings:: The left atrium is moderately enlarged. The exam shows no evidence of atrial thrombus. The mitral valve leaflets anatomically looked normal. There is a moderate amount of annular calcium noted. There is no mass associated with the mitral valve apparatus. There is a trivial jet of mitral regurgitation which is centrally directed jet. The left ventricle is [id number] hypertrophied of normal size and contracts well in all segmen ts the ejection fraction visually estimates at 60-65%. The aortic valve is a trileaflet structure which is stenotic with significant fibrocalcific thickening and restriction of leaflet excursion. Aortic valve area by planimetry is 0.8 cm2. There is a trivial jet of aortic regurgitation identified as well. The ascending aorta arch and descending thoracic aorta looked unremarkable. The right-sided chambers are normal in appearance the interatrial septum is intact. The tricuspid valve looks unremarkable. Conclusion:: 1. Calcific aortic stenosis in a trileaflet valve with a plan number valve area of 0.8 cm2, this correlates well with trans thoracic Doppler calculation. 2. Trivial aortic valve regurgitation 3. left ventricular hypertrophy with good contractility 4. mitral annular calcification with trivial MR and no mitral valve mass is present Tor[facility] Ford MD [facility]
--- NOTE | 2020-12-14 11:32 | PM.PNCARD ---
Progress Note: A&P Additional Plan 60-year-old man with: Symptomatic severe aortic valve stenosis as demonstrated by both transesophageal and transthoracic echo. Moy today shows no evidence of a mitral valve mass lesion. This was obviously an artifact on the transthoracic exam. When he is recovered from his MOY sedation discharge today is okay with me. We will insure that he has appropriate follow-up in our practice scheduled to finish his evaluation is a candidate either for AVR or TAVR. Torrey Ford MD [facility] Subjective Date/time seen: date of service:12/14/20 11:32 Interval history: Follow-up visit in this 60-year-old man with: Valvular heart disease patient has significant aortic valve stenosis as well as question of mitral valve mass lesion noted on transthoracic echo. Moy today rules out any evidence of mitral valve mass lesion. Aortic valve area is confirmed as being severely stenotic. 0.8 cm2. Exam Const: General: comfortable and no acute distress HENMT: Mouth: Yes moist mucous membranes Eyes: Sclera: sclerae normal Pupils: Equal, round and reactive pupils present Neck: Neck: supple and no JVD Other: Transmitted systolic murmur to the carotids bilaterally with diminished carotid upstroke Resp: Effort & Inspection: normal respiratory effort Other: breath sounds somewhat diminished bilaterally otherwise clear Cardio: Rate: regular rate Rhythm: regular rhythm Other: grade 2/6 crescendo decrescendo murmur audible at the base radiating to the carotids. No diastolic murmurs audible GI: GI Palp: Yes Soft to palpation Auscultation: normal bowel sounds Skin: General skin exam: normal color Neuro: Cognition (Neuro): normal cognition Extrem: General: normal to inspection Objective Data Vital Signs Vital Signs: Vital Signs - 24 hr 12/13/20 12:00 12/13/20 14:00 12/13/20 16:00 Temperature 36.7 C Pulse Rate 76 72 105 H Respiratory Rate 20 Blood Pressure 128/72 Pulse Oximetry 100 12/13/20 19:38 12/13/20 20:00 12/14/20 00:00 Temperature 36.2 C L Pulse Rate 89 80 66 Respiratory Rate 12 Blood Pressure 102/59 L Pulse Oximetry 96 12/14/20 02:05 12/14/20 04:00 12/14/20 06:10 Temperature 36.7 C 36.8 C Pulse Rate 61 59 L 78 Respiratory Rate 12 12 Blood Pressure 99/64 L 112/68 Pulse Oximetry 98 98 12/14/20 08:00 12/14/20 09:12 12/14/20 11:05 Temperature Pulse Rate 77 77 Respiratory Rate 20 Blood Pressure 100/67 Pulse Oximetry 93 97 12/14/20 11:15 12/14/20 11:20 12/14/20 11:25 Temperature Pulse Rate 73 76 71 Respiratory Rate 16 17 15 Blood Pressure 108/82 109/81 104/59 L Pulse Oximetry 96 97 Intake/Output Intake/Output: Intake & Output 12/11/20 12/12/20 12/13/20 12/14/20 23:59 23:59 23:59 23:59 Intake Total 9046 854 4516 600 Output Total 200 700 600 Balance 071 078 4967 600 Meds/Results Medications: Active Medications Generic Name Dose Route Start Last Admin Trade Name Freq PRN Reason Stop Dose Admin Brimonidine Tartrate 1 drop 12/12/20 21:00 12/14/20 09:04 Brimonidine Tartrate 0.2% Op Soln 5 Ml Btl RIGHT EYE 1 drop Q12HR CHRISTOPHE Administration Latanoprost 1 drop 12/11/20 21:00 12/13/20 20:14 Latanoprost 0.005% Op Soln 2.5 Ml Btl RIGHT EYE 1 drop HS CHRISTOPHE Administration Levetiracetam 500 mg 12/11/20 21:00 12/14/20 09:00 Levetiracetam 500 Mg Tablet PO 500 mg Q12HR CHRISTOPHE Administration Radiology Results: ITS Impressions Head CT 12/11/20 09:35 IMPRESSION: 1. Right temporal occipital gyral calcification and volume loss, chronic finding. Some differential considerations listed above. 2. 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 3. Chronic age related findings. Chest X-Ray 12/11/20 09:59 IMPRESSION: No acute cardiopulmonary findings. Brain MRI 12/12/20 14:24 IMPRESSION: 1. Old small left frontal lobe and punctate old left thalamic lacunar
--- NOTE | 2020-12-14 12:26 | PC.NURSE ---
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
[2020-12-14] MEDS: SODIUM CHLORIDE 0.9% IV 1,000 ML 100 ML IV CONT (12:57)
--- NOTE | 2020-12-14 18:23 | PM.IMPN ---
Progress Note: A&P Assessment and Plan (1) Altered mental status: Qualifiers: Altered mental status type: unspecified Qualified Code(s): R41.82 - Altered mental status, unspecified Code(s): R41.82 - Altered mental status, unspecified Status: Acute (2) Unresponsive episode: Code(s): R41.89 - Other symptoms and signs involving cognitive functions and awareness Status: Acute (3) Seizure: Code(s): R56.9 - Unspecified convulsions Status: Acute (4) Hyperglycemia: Code(s): R73.9 - Hyperglycemia, unspecified Status: Acute (5) Glaucoma: Code(s): H40.9 - Unspecified glaucoma Status: Acute (6) DVT prophylaxis: Code(s): Z29.9 - Encounter for prophylactic measures, unspecified Status: Acute Assessment and Plan: SCDs Additional Plan The patient was brought to the emergency department after he was found unresponsive and ?foaming at the mouth? in a chair at work on 12/11. Given his confusion upon waking and remote history of seizure, it was suspect he probably had another seizure and was postictal in the emergency department. UDS negative. He denies excessive alcohol use. UA unremarkable. Brain CT showed a chronic finding of right temporal occipital gyral calcification and volume loss, and old left frontal lobe periventricular white matter small old infarction measuring about 1 cm, and chronic age related findings. 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 He was started on Keppra and Dr. Padilla (neurology) was consulted. The patient monitored on telemetry but no cardiac dysrhythmia noted. Glucose elevated at 213 on admission but felt to be stress response. Repeat glucose normal. A1c 5.0. TSH normal. MRI brain showing no acute findings but does show old small left frontal lobe and punctate old left thalamic lacunar infarctions and right occipital temporal gyral calcifications (consistent with Sturge-Dennison syndrome). Echo showing EF 65-70%, Grade 1 diastolic dysfunction and severe aortic valve stenosis with valve area 0.5-0.7cm2. Also a questionable mobile mass on the Mitral valve. Cardiology consulted for possible LUANNE to further evaluate valves. BCx ordered and are NGTD. Spoke with sister and she was informed of these findings 12/12. She states the patient has been having increasing SOB with exertion over the past 4-5 months. ESR 26 with normal CRP. Patient had LUANNE showing calcified AV with ADRIÁN 0.8cm2. No mitral valve mass. BP soft during the procedure requiring fluid bolus and remained soft after being back to the floor. IV fluids started. Will hold overnight to monitor BP and check orthostatics. Home in the morning if his BP remains stable. Discussed with sister. Subjective Date/time seen: 12/14/20 18:23 Interval history: Date of service 12/14 60-year-old male with remote history of seizure brought to the emergency room after being found unresponsive. Patient back from LUANNE and Ho[facility] now. No lightheadedness. No CP. No n/v. No abd pain. No SOB or dizziness. 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 Objective Data Vital Signs Vital Signs: Vital Signs - 24 hr 12/13/20 19:38 12/13/20 20:00 12/14/20 00:00 Temperature 97.2 F L Pulse Rate 89 80 66 Respiratory Rate 12 Blood Pressure 102/59 L Pulse Oximetry 96 12/14/20 02:05 12/14/20 04:00 12/14/20 06:10 Temperature 98.1 F 98.2
[2020-12-14] MEDS: LATANOPROST 0.005% OP SOLN 2.5 ML BTL 1 DROP RIGHT EYE (21:22)
[2020-12-14] MEDS: BRINZOLAMIDE 1% OPHTH SUSP 10 ML 1 DROP RIGHT EYE (21:37)
[2020-12-15] VITALS: PULSE 61
[2020-12-15 04:00] VITALS: PULSE 56
[2020-12-15 05:16] VITALS: BP 113/57; PULSE 61; RESP 18; TEMP 36.1; O2SAT 96
[2020-12-15 08:00] VITALS: PULSE 74
[2020-12-15 08:30] VITALS: BP 117/71; PULSE 77; RESP 20; TEMP 36.5; O2SAT 96
[2020-12-15] MEDS: levETIRAcetam 500 MG TABLET PO (08:32)
[2020-12-15] MEDS: BRINZOLAMIDE 1% OPHTH SUSP 10 ML 1 DROP RIGHT EYE (08:33)
[2020-12-15] MEDS: BRIMONIDINE TARTRATE 0.2% OP SOLN 5 ML BTL 1 DROP RIGHT EYE (08:33)
--- NOTE | 2020-12-15 08:36 | PC.NURSE ---
Morning assessment being done by student at this time. I am in the room as well and monitoring.
[2020-12-15 09:03] VITALS: BP 122/72; BP 123/68
--- NOTE | 2020-12-15 13:38 | WPDNEUROLOGY ---
Neurology EEG Report General Information Date of Study: 12/14/20 TEST eeg DIAGNOSIS seizures CONDITION OF RECORDING awake drowsy and sleep EEG NUMBER [id number] CLINICAL HISTORY patient reportedly was at work when he was found unresponsive and foaming at the mouth. Patient also reported he has had seizures when he was younger but has not had 1 since 1967 EEG DESCRIPTION whole record consists of low-voltage 15 to 18 hertz perse cond beta activity during drowsiness. Bilateral symmetrical sleep activity seen during sleep with normal and symmetrical sleep spindles. Non paroxysmal, nonfocal, nonlateralizing .intermittent regular EKG artifact is seen throughout the tracing IMPRESSION no significant abnormalities noted
--- NOTE | 2020-12-15 17:56 | PM.DS ---
DS: Admitting Diagnosis Admitting Diagnosis Admitting Diagnosis: Seizure with altered mental status DS: Discharge Diagnosis Discharge Diagnosis (1) Altered mental status: Qualifiers: Altered mental status type: unspecified Qualified Code(s): R41.82 - Altered mental status, unspecified Code(s): R41.82 - Altered mental status, unspecified Status: Acute Assessment and Plan: Thought secondary to possible postictal state and did resolve. No other underlying metabolic abnormalities (2) Seizure: Code(s): R56.9 - Unspecified convulsions Status: Acute Assessment and Plan: EEG revealed no seizure activity. MRI revealed Sturge-Dennison syndrome and patient was placed on Keppra 500 b.i.d.. To follow-up with neurology in 4 weeks (3) Hyperglycemia: Code(s): R73.9 - Hyperglycemia, unspecified Status: Acute Assessment and Plan: Sugar elevated on admission but but A1c only 5.0 and at discharge fasting sugar only 90 Thought stress related (4) Aortic stenosis: Code(s): I35.0 - Nonrheumatic aortic (valve) stenosis Status: Acute Assessment and Plan: Murmur precipitated echocardiogram which showed moderate to severe . There was question of vegetation on transthoracic echo but LUANNE revealed no vegetation. Patient will follow-up with cardiology for evaluation of valve repair DS: Summary Hospital Course Hospital Course: 60-year-old male admitted with altered mental status probable postictal. Thought to have had seizure placed on Keppra 500 b.i.d.. MRI revealed Sturge-Dennison syndrome and EEG revealed no definite seizure activity Systolic ejection murmur prompted echocardiogram which revealed severe aortic stenosis. The transthoracic echo thought to have revealed a vegetation but LUANNE did not reveal any vegetation. Patient will follow-up with cardiology for referral for valve repair Time Spent with Patient Time attestation: Total time spent providing and/or coordinating discharge services: 35 minutes Exam Narrative: Exam Narrative: Condition on discharge Blood pressure 122/72 pulse 76 regular Lungs clear CV systolic ejection murmur lower left sternal border to the 2nd right intercostal space Abdomen is soft nontender Extremities without edema good distal pulses Neuro alert cooperative no focal deficits Discharged home in stable condition DS: Data Data Completed and Pending Labs on day of discharge: Preliminary micro results at discharge 12/12/20 16:40 Blood Culture - Preliminary Blood 12/12/20 16:34 Blood Culture - Preliminary Blood 12/13/20 05:50 Blood Culture - Preliminary Blood 12/13/20 05:51 Blood Culture - Preliminary Blood Discharge Plan Discharge Attending physician on discharge: Selwyn Romano Consulting providers: Juan Ramon Padilla ; Yessi Moya Discharging Clinician: Selwyn Romano Patient Disposition: Home, Self-Care Activity: no driving Diet: low sodium Patient Instructions: Antibiotic Form, Levetiracetam (By mouth), Pain Management (DC), Altered Mental Status (ED), New-Onset Seizure in Adults (DC), Electroencephalogram (DC) Stand Alone Forms: General Discharge Information Follow-up/Referrals: Juan Ramon Padilla MD [Physician] - 4 Weeks PHYSICIAN,[employer]BER [Primary Care Provider] - 2 Weeks Yessi Moya MD [Physician] - Call for Appointment Discharge Medications: New levetiracetam [Keppra] 500 mg Tablet 500 mg PO Q12HR Qty: 60 RF: 0 Continued latanoprost 0.005 % drops 1 drp RIGHTEYE HS RF: 0 brimonidine 1 drp RIGHTEYE BID RF: 0 Vyzulta 0.024 % drops 1 drp RIGHTEYE DAILY RF: 0 Azopt 1 % Drops,Suspension 1 drp RIGHTEYE BID RF: 0 Date of admission: 12/13/20 13:28 Primary Care Provider: PHYSICIAN,[employer]BER Admitting Provider: Chaim Keith Attending physician on admission: Chaim Keith Condition: Stable Quality VTE Prophylaxis VT
== END 2020-12-15 13:50 | disposition home or self-care (01) | DRG 101 ==
LOC: ANHED 11:30 → ANH3MED 13:50
PROVIDERS: Internal Medicine Cardiovascular Disease; Physician Assistant; Specialist; Admitting Provider Internal Medicine; Emergency Provider Emergency Medicine; Visit Provider Internal Medicine
PROC: B24BZZ4 Ultrasonography of Heart with Aorta, Transesophageal (ICD-10-PCS; CPT 93312; principal; 2020-12-14 11:30)
DX: R56.9 Unspecified convulsions (principal); Q85.8 Other phakomatoses, not elsewhere classified; R41.89 Other symptoms and signs involving cognitive functions and awareness; I35.0 Nonrheumatic aortic (valve) stenosis; R73.9 Hyperglycemia, unspecified; H40.9 Unspecified glaucoma; Z87.820 Personal history of traumatic brain injury
CPT/HCPCS: 36415; 36600; 70450; 70551; 71045; 80053; 80307; 81001; 82010; 82140; 82375; 82805; 82948; 83036; 83050; 83735; 84443; 84484; 85025; 85027; 85610; 85652; 85730; 86140; 87040; 93005; 93306; 93312; 93320; 93325; 95816; 96365; 96375; 99285; A9270; G0378; J1953; J2250; J2405; J3010; J7030; J7040

== ENCOUNTER 2020-12-29 15:49 | Outpatient (CLI) | payer OTHER, SELFPAY ==
[2020-12-29 16:21] LABS: Basophils Percent Auto 0.5 % (0.2-1.2); Eosinophils Absolute Auto 0.1 K/mm3 (0-0.3); Eosinophils Percent Auto 1.3 % (0-4.4); Hematocrit 41.1 % (42.0-52.0); Hemoglobin 13.6 g/dL (14.0-18.0); Immature Granulocyte Absolute 0.02 K/mm3 (0.00-0.031); Immature Granulocyte Percent A 0.2 % (0-0.5); Lymphocytes Absolute Auto 1.65 K/mm3 (0.9-3.2); Lymphocytes Percent Auto 20.2 % (18.3-44.2); Mean Corpuscular HGB Conc 33.1 g/dl (32-36); Mean Corpuscular Hemoglobin 30.5 pg (26-34); Mean Corpuscular Volume 92.2 fl (80-100); Mean Platelet Volume 9.2 fl (7.4-10.4); Monocytes Absolute Auto 0.8 K/mm3 (0.1-0.6); Monocytes Percent Auto 9.5 % (2.6-8.5); Neutrophils Absolute Auto 5.6 K/mm3 (1.3-6.7); Neutrophils Percent Auto 68.3 % (45.5-73.1); Platelet Count Result 253 k/mm3 (150-375); Red Blood Count 4.46 M/mm3 (4.6-6.20); Red Cell Distribution Width 13.1 % (11.5-14.5); White Blood Count 8.2 K/mm3 (4.5-10.0)
[2020-12-29 16:39] LABS: Alanine Aminotransferase 32 U/L (4-50); Albumin Level 4.4 g/dL (3.5-5.1); Alkaline Phosphatase 75 U/L (38-126); Anion Gap 5 mmol/L (8-16); Aspartate Amino Transferase 30 U/L (17-59); Bilirubin,Total 0.3 mg/dL (0.2-1.3); Blood Urea Nitrogen 15 mg/dL (9-20); Calcium 9.5 mg/dL (8.4-10.2); Carbon Dioxide 32 mmol/L (22-30); Chloride 105 mmol/L (98-107); Estimated Glomerular Filt Rate > 60; Glucose 101 mg/dL (75-110); Potassium 4.2 mmol/L (3.4-5.0); Sodium 142 mmol/L (137-145)
== END 2020-12-29 15:50 | disposition home or self-care (01) ==
LOC: ANHLAB 15:51
PROVIDERS: Visit Provider Internal Medicine Cardiovascular Disease
DX: I35.0 Nonrheumatic aortic (valve) stenosis (principal)
CPT/HCPCS: 36415; 80053; 85025

== ENCOUNTER 2021-04-27 14:34 | Outpatient (CLI) | payer OTHER, SELFPAY ==
[2021-04-27 14:59] LABS: Basophils Percent Auto 0.5 % (0.2-1.2); Eosinophils Absolute Auto 0.1 K/mm3 (0-0.3); Eosinophils Percent Auto 0.7 % (0-4.4); Hematocrit 36.1 % (42.0-52.0); Hemoglobin 11.6 g/dL (14.0-18.0); Immature Granulocyte Absolute 0.03 K/mm3 (0.00-0.031); Immature Granulocyte Percent A 0.4 % (0-0.5); Lymphocytes Absolute Auto 1.72 K/mm3 (0.9-3.2); Lymphocytes Percent Auto 20.9 % (18.3-44.2); Mean Corpuscular HGB Conc 32.1 g/dl (32-36); Mean Corpuscular Hemoglobin 28.8 pg (26-34); Mean Corpuscular Volume 89.6 fl (80-100); Mean Platelet Volume 9.5 fl (7.4-10.4); Monocytes Absolute Auto 0.7 K/mm3 (0.1-0.6); Monocytes Percent Auto 8.6 % (2.6-8.5); Neutrophils Absolute Auto 5.7 K/mm3 (1.3-6.7); Neutrophils Percent Auto 68.9 % (45.5-73.1); Platelet Count Result 272 k/mm3 (150-375); Red Blood Count 4.03 M/mm3 (4.6-6.20); Red Cell Distribution Width 15.2 % (11.5-14.5); White Blood Count 8.2 K/mm3 (4.5-10.0)
[2021-04-27 15:02] LABS: Add Urine Microscopic? YES; Appearance Urine Clear (Clear); Bacteria Urine Trace /hpf; Bilirubin Urine Negative (Negative); Blood Urine Negative (Negative); Color Urine Yellow (Yellow); Glucose Urine UA Negative (Negative); Ketones Urine Negative (Negative); Leukocyte Esterase Ur Negative LEU/UL (Negative); Nitrate Urine Negative (Negative); Protein Urine Negative (Negative); RBC Urine 0-2 /hpf (0-2); Specific Grav Ur 1.015 (1.001-1.035); Squamous Epithelial Cell Urine Rare /hpf (Few); Urobilinogen Urine Negative mg/dL (<2.0); WBC Urine 0-3 /hpf
[2021-04-27 15:16] LABS: Alanine Aminotransferase 40 U/L (4-50); Albumin Level 4.4 g/dL (3.5-5.1); Alkaline Phosphatase 84 U/L (38-126); Anion Gap 6 mmol/L (8-16); Aspartate Amino Transferase 48 U/L (17-59); Bilirubin,Total 0.3 mg/dL (0.2-1.3); Blood Urea Nitrogen 17 mg/dL (9-20); Calcium 9.5 mg/dL (8.4-10.2); Carbon Dioxide 26 mmol/L (22-30); Chloride 108 mmol/L (98-107); Cholesterol 118 mg/dL (0-200); Estimated Glomerular Filt Rate > 60; Glucose 104 mg/dL (75-110); HDL Direct 43 mg/dL; Potassium 4.2 mmol/L (3.4-5.0); Sodium 140 mmol/L (137-145); Triglycerides 90 mg/dL (<150)
[2021-04-27 15:27] LABS: LDL Cholesterol Direct 47 mg/dL
[2021-04-27 15:49] LABS: Prostate Specific Antigen 1.4 ng/mL (< OR = 4.0)
[2021-04-27 16:38] LABS: Free T4 Free Thyroxine 1.49 ng/mL (0.78-2.19); Vitamin D 25 Hydroxy 19.3 ng/mL
[2021-04-30 12:15] LABS: Testosterone Total 316 ng/dL (250-1100)
== END 2021-04-27 14:35 | disposition home or self-care (01) ==
PROVIDERS: Visit Provider Internal Medicine
DX: Z12.5 Encounter for screening for malignant neoplasm of prostate (principal); M25.561 Pain in right knee; S06.2X9A Diffuse traumatic brain injury with loss of consciousness of unspecified duration, initial encounter; Z51.81 Encounter for therapeutic drug level monitoring; Z79.899 Other long term (current) drug therapy; I48.0 Paroxysmal atrial fibrillation; H40.9 Unspecified glaucoma; I25.84 Coronary atherosclerosis due to calcified coronary lesion; Z79.01 Long term (current) use of anticoagulants; Q85.8 Other phakomatoses, not elsewhere classified; I51.7 Cardiomegaly; I35.0 Nonrheumatic aortic (valve) stenosis; G40.89 Other seizures; M17.11 Unilateral primary osteoarthritis, right knee; Z95.4 Presence of other heart-valve replacement
CPT/HCPCS: 36415; 80053; 80061; 81001; 82306; 84153; 84403; 84439; 85025

== ENCOUNTER 2021-06-25 02:17 | Day surgery (SDC) | payer OTHER, SELFPAY ==
[2021-06-16 11:30] VITALS: BMI 22.7
--- NOTE | 2021-06-25 10:23 | P.PNAN_ITS ---
Anes - Initial Pre Proc Eval Procedure: Operation Date: 06/25/21 13:00 Proposed Procedures p Colonoscopy - Lele Barrow MD Date/Time: 06/25/21 10:23 Surgeon: Lele Barrow MD Pre Op Diagnosis: rectal bleed Patient Data Age: 61 Gender: M Height: 1.65 m Weight: 62 kg Allergies Allergy/AdvReac Type Severity Reaction Status Date / Time No Known Allergies Allergy Verified 06/25/21 12:35 Home Medications Medication Instructions Recorded Confirmed Type latanoprost 1 drp RIGHTEYE HS 12/11/20 06/16/21 History brimonidine 1 drp RIGHTEYE BID 12/12/20 06/16/21 History Vyzulta 1 drp RIGHTEYE DAILY 12/13/20 06/16/21 History aspirin [Aspir-Low] 81 mg PO DAILY 04/27/21 06/16/21 History metoprolol tartrate 12.5 mg PO BID 04/27/21 06/16/21 History rosuvastatin 20 mg PO DAILY 04/27/21 06/16/21 History apixaban [Eliquis] 5 mg PO BID 06/16/21 06/16/21 History brinzolamide 1 drp RIGHT EYE BID 06/16/21 06/16/21 History Patient hx anesthesia problems: none Family hx anesthesia problems: none PMFSH Past Medical History Medical History (Updated 06/25/21 @ 10:24 by Kirill Aguila MD) Aortic stenosis AVR 12/2020 Glaucoma Head injury Head trauma as a child. Seizure Single seizure in the 1960s. Surgical History Surgical History (System 12/17/20 @ 13:22 by Ricarda Harris) H/O eye surgery History of tonsillectomy Family History Family History Father Diabetes mellitus Heart disease Mother Cerebrovascular accident Other No significant family history Social History Social History (System 12/17/20 @ 13:22 by Ricarda Harris) Social History: The patient lives alone in [place]. Lifelong nonsmoker. No alcohol or illicit substance use. 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 He designates his sister, Bety Wang, as his surrogate decision maker and he wishes to be a full code. Smoking status: Never smoker Alcohol intake: never Living arrangements: alone Gender identity (if verbalized by the patient): Male Spiritual care concerns: No Anes - Eval Final PreProcedure Day of Procedure 06/25/21 10:23 Patient weight: obese Heart: regular rate and rhythm Lungs: clear to auscultation and normal air movement Airway: Mallampati scale class II Neurological: alert and oriented Last oral intake: >/= 8 hours ASA classification: III Emergent: no Anesthetic plan: proceed Anesthesia type and monitoring: general GIVS Informed Consent: The patient's anesthetic plan and its attendant risks and benefits were discussed with the patient/family/POA. Questions were solicited and answers provided to the satisfaction of the patient/family/POA.
[2021-06-25 12:37] VITALS: BP 111/63; PULSE 55; RESP 20; TEMP 36.4; O2SAT 100
[2021-06-25] MEDS: GENTAMICIN 80MG/SOD CHL 50 ML 80 MG/50 ML BAG 100 MG IVPB (12:49)
[2021-06-25] MEDS: LACTATED RINGERS 1,000 ML 150 ML IV CONT (12:53)
[2021-06-25] MEDS: AMPICILLIN 2 GM/NS 100 ML 2 GM/100 ML BAG IVPB (13:12)
--- NOTE | 2021-06-25 13:12 | PM.HPGS ---
History of Present Illness History of Present Illness Consent: Risks, benefits, and alternatives have been discussed and questions answered. Patient agrees to proceed with procedure. Chief complaint: rectal bleed Narrative: Yordan Wang is a 61 year old male with intermittent rectal bleeding using eliquis, never had a colonoscopy Review of Systems Constitutional: Constitutional: Denies headache(s) and Denies weakness Eyes: Eyes: Denies blurry vision ENT: Reports Normal hearing present, Denies headache(s) and Denies neck pain Cardiovascular: Cardiovascular: Denies chest pain and Denies dyspnea Respiratory: Respiratory: Denies dyspnea Gastrointestinal: Gastrointestinal: Reports no additional gastrointestinal complaints Genitourinary: Genitourinary: Denies dysuria Musculoskeletal: Musculoskeletal: Denies neck pain Integumentary/Breasts: Skin/Breast: Denies dry skin Neurologic: Reports Normal hearing present, Denies headache(s) and Denies weakness Psychiatric: Psychiatric: Denies anxiety Endocrine: Endocrine: Denies change in body appearance Hematologic/Lymphatic: Hematologic/Lymphatic: Denies easy bleeding Allergic/Immunologic: Allergic/Immunologic: Denies urticaria PMFSH Past Medical History Medical History (Updated 06/25/21 @ 13:13 by Lele Barrow MD) Aortic stenosis AVR 12/2020 Blood in stool Glaucoma Head injury Head trauma as a child. Seizure Single seizure in the 1960s. Surgical History Surgical History (System 12/17/20 @ 13:22 by Ricarda Harris) H/O eye surgery History of tonsillectomy Family History Family History Father Diabetes mellitus Heart disease Mother Cerebrovascular accident Other No significant family history Social History Social History (System 12/17/20 @ 13:22 by Ricarda Harris) Social History: The patient lives alone in [place]. Lifelong nonsmoker. No alcohol or illicit substance use. 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 He designates his sister, Bety Wang, as his surrogate decision maker and he wishes to be a full code. Smoking status: Never smoker Alcohol intake: never Living arrangements: alone Gender identity (if verbalized by the patient): Male Spiritual care concerns: No Meds Home Medications and Allergies Home Medications Medication Instructions Recorded Confirmed Type latanoprost 1 drp RIGHTEYE HS 12/11/20 06/16/21 History brimonidine 1 drp RIGHTEYE BID 12/12/20 06/16/21 History Vyzulta 1 drp RIGHTEYE DAILY 12/13/20 06/16/21 History aspirin [Aspir-Low] 81 mg PO DAILY 04/27/21 06/16/21 History metoprolol tartrate 12.5 mg PO BID 04/27/21 06/16/21 History rosuvastatin 20 mg PO DAILY 04/27/21 06/16/21 History apixaban [Eliquis] 5 mg PO BID 06/16/21 06/16/21 History brinzolamide 1 drp RIGHT EYE BID 06/16/21 06/16/21 History Allergies Allergy/AdvReac Type Severity Reaction Status Date / Time No Known Allergies Allergy Verified 06/25/21 12:35 Vital Signs Vital Signs - 24 hr 06/25/21 12:37 Temperature 97.5 F L Pulse Rate 55 L Respiratory Rate 20 Blood Pressure 111/63 Pulse Oximetry 100 Exam Const: General: comfortable and no acute distress HENMT: General nose exam: Normal nares present Eyes: General: appearance normal, both eyes and all related structures Neck: Neck: no JVD Resp: Auscultation: clear to auscultation bilaterally Cardio: Rate: regular rate Rhythm: regular rhythm GI: Inspection: non-distended GI Palp: Yes Soft to palpation Skin: General skin exam: normal color Neuro: General: gait normal Speech: normal speech Extrem: General: normal to inspection Psych: Mental Status: mental status grossly normal Assessment and Plan Assessment and plan (1) Blood in stool: Code(s): K92.1 - Melena Status: Acute Assessment and Plan: colonoscopy
[2021-06-25 13:30] VITALS: BP 100/66; PULSE 60; RESP 14; O2SAT 96
[2021-06-25 13:40] VITALS: BP 106/73; PULSE 60; RESP 15; O2SAT 98
[2021-06-25 13:50] VITALS: BP 111/79; PULSE 57; RESP 16; O2SAT 97
== END 2021-06-25 14:05 | disposition home or self-care (01) ==
PROVIDERS: Visit Provider Internal Medicine Gastroenterology
PROC: 0DJD8ZZ Inspection of Lower Intestinal Tract, Via Natural or Artificial Opening Endoscopic (ICD-10-PCS; CPT 45378; principal; 2021-06-25 13:00)
DX: K92.1 Melena (principal); K64.8 Other hemorrhoids; Z79.82 Long term (current) use of aspirin; Z79.01 Long term (current) use of anticoagulants; I25.10 Atherosclerotic heart disease of native coronary artery without angina pectoris; I35.0 Nonrheumatic aortic (valve) stenosis; Q85.8 Other phakomatoses, not elsewhere classified; R06.02 Shortness of breath; Z95.3 Presence of xenogenic heart valve; I48.0 Paroxysmal atrial fibrillation
CPT/HCPCS: 45378; J0290; J1580; J2704; J7120

== ENCOUNTER 2021-08-18 15:22 | Outpatient (CLI) | payer OTHER, SELFPAY ==
[2021-08-18 15:53] LABS: Hematocrit 40.1 % (42.0-52.0); Mean Corpuscular HGB Conc 32.4 g/dl (32-36); Mean Corpuscular Hemoglobin 30.4 pg (26-34); Mean Corpuscular Volume 93.7 fl (80-100); Mean Platelet Volume 9.5 fl (7.4-10.4); Platelet Count Result 244 k/mm3 (150-375); Red Blood Count 4.28 M/mm3 (4.6-6.20); Red Cell Distribution Width 13.7 % (11.5-14.5); White Blood Count 6.8 K/mm3 (4.5-10.0)
[2021-08-18 16:05] LABS: Alanine Aminotransferase 30 U/L (4-50); Albumin Level 4.6 g/dL (3.5-5.1); Alkaline Phosphatase 76 U/L (38-126); Anion Gap 10 mmol/L (8-16); Aspartate Amino Transferase 33 U/L (17-59); Bilirubin,Total 0.5 mg/dL (0.2-1.3); Blood Urea Nitrogen 20 mg/dL (9-20); Calcium 9.1 mg/dL (8.4-10.2); Carbon Dioxide 28 mmol/L (22-30); Chloride 103 mmol/L (98-107); Cholesterol 113 mg/dL (0-200); Estimated Glomerular Filt Rate > 60; Glucose 96 mg/dL (65-110); HDL Direct 44 mg/dL; Potassium 4.1 mmol/L (3.4-5.0); Sodium 141 mmol/L (137-145); Triglycerides 77 mg/dL (<150)
[2021-08-18 16:07] LABS: Add Urine Microscopic? YES; Appearance Urine Clear (Clear); Bilirubin Urine Negative (Negative); Blood Urine Negative (Negative); Color Urine Yellow (Yellow); Glucose Urine UA Negative (Negative); Ketones Urine Negative (Negative); Leukocyte Esterase Ur Negative LEU/UL (Negative); Nitrate Urine Negative (Negative); Protein Urine Negative (Negative); RBC Urine 0-2 /hpf (0-2); Specific Grav Ur 1.015 (1.001-1.035); Urobilinogen Urine Negative mg/dL (<2.0); WBC Urine 0-3 /hpf
[2021-08-18 16:16] LABS: LDL Cholesterol Direct 50 mg/dL
[2021-08-18 16:27] LABS: Free T4 Free Thyroxine 1.29 ng/mL (0.78-2.19)
[2021-08-18 16:38] LABS: Prostate Specific Antigen 1.5 ng/mL (< OR = 4.0)
[2021-08-22 00:54] LABS: Testosterone Total 478 ng/dL (250-1100)
== END 2021-08-18 15:23 | disposition home or self-care (01) ==
LOC: ANHLAB 15:26
PROVIDERS: Visit Provider Nurse Practitioner Family
DX: M25.561 Pain in right knee (principal); K62.9 Disease of anus and rectum, unspecified; S06.2X9A Diffuse traumatic brain injury with loss of consciousness of unspecified duration, initial encounter; Z51.81 Encounter for therapeutic drug level monitoring; Z79.899 Other long term (current) drug therapy; I48.0 Paroxysmal atrial fibrillation; H40.9 Unspecified glaucoma; I25.84 Coronary atherosclerosis due to calcified coronary lesion
CPT/HCPCS: 36415; 80053; 80061; 81001; 84153; 84403; 84439; 84443; 85025

== ENCOUNTER 2021-08-19 18:00 | Outpatient (RCR) | payer OTHER, SELFPAY ==
[2021-04-27 15:48] VITALS: PULSE 61
[2021-04-27 16:02] VITALS: BP 138/56; PULSE 61; RESP 16; O2SAT 98
--- NOTE | 2021-05-12 16:46 | PCCPR ---
Absent due to knee pain Bessie called in states his knee is bothering him and wants to rest it today. Encouraged him to ice and elevate it. L
--- NOTE | 2021-07-29 11:35 | PCCPR ---
Absent due to transportation Spoke with Bety Farr's sister a couple weeks ago stating her family had been exposed to COVID 19 and he depends on her or other family for a ride here for rehab. LM for both he and his sister to call us regarding a plan for his return to complete the program.
== END 2021-08-19 18:26 | disposition home or self-care (01) ==
LOC: ANHCPREHAB 18:00
PROVIDERS: Visit Provider Internal Medicine Cardiovascular Disease
DX: Z95.2 Presence of prosthetic heart valve (principal)
CPT/HCPCS: 93798

== ENCOUNTER 2022-05-27 16:19 | Outpatient (CLI) | payer OTHER, SELFPAY ==
[2022-05-27 17:04] LABS: Basophils Absolute Auto 0.1 K/mm3 (0.0-0.1); Basophils Percent Auto 0.7 % (0.2-1.2); Eosinophils Absolute Auto 0.1 K/mm3 (0-0.3); Eosinophils Percent Auto 1.2 % (0-4.4); Hematocrit 40.9 % (42.0-52.0); Immature Granulocyte Absolute 0.02 K/mm3 (0.00-0.031); Immature Granulocyte Percent A 0.2 % (0-0.5); Lymphocytes Absolute Auto 1.78 K/mm3 (0.9-3.2); Lymphocytes Percent Auto 21.6 % (18.3-44.2); Mean Corpuscular HGB Conc 31.8 g/dl (32-36); Mean Corpuscular Hemoglobin 30.3 pg (26-34); Mean Corpuscular Volume 95.3 fl (80-100); Mean Platelet Volume 9.5 fl (7.4-10.4); Monocytes Absolute Auto 0.8 K/mm3 (0.1-0.6); Monocytes Percent Auto 9.8 % (2.6-8.5); Neutrophils Absolute Auto 5.5 K/mm3 (1.3-6.7); Neutrophils Percent Auto 66.5 % (45.5-73.1); Platelet Count Result 229 k/mm3 (150-375); Red Blood Count 4.29 M/mm3 (4.6-6.20); Red Cell Distribution Width 13.2 % (11.5-14.5); Reticulocyte Hemoglobin Conten 34.4 pg (28.2-35.7); Reticulocytes Absolute 0.05 B/L (32.2-175.7); White Blood Count 8.2 K/mm3 (4.5-10.0)
[2022-05-27 17:20] LABS: Alanine Aminotransferase 38 U/L (6-50); Albumin Level 4.5 g/dL (3.5-5.1); Alkaline Phosphatase 77 U/L (38-126); Anion Gap 9 mmol/L (8-16); Aspartate Amino Transferase 36 U/L (17-59); Bilirubin,Total 0.6 mg/dL (0.2-1.3); Blood Urea Nitrogen 19 mg/dL (9-20); Calcium 8.9 mg/dL (8.4-10.2); Carbon Dioxide 26 mmol/L (22-30); Chloride 104 mmol/L (98-107); Estimated Glomerular Filt Rate > 60; Glucose 89 mg/dL (65-110); Lactate Dehydrogenase 520 U/L (313-618); Potassium 4.1 mmol/L (3.4-5.0); Sodium 139 mmol/L (137-145)
[2022-05-27 17:28] LABS: Iron 92 ug/dL (49-181)
[2022-05-27 17:36] LABS: Transferrin 243 mg/dL (206-381)
[2022-05-27 17:40] LABS: Percent Iron Saturation 25 % (20-50)
[2022-05-30 05:56] LABS: Rapid Plasma Reagin Non-Reactive (NonReactive)
[2022-05-30 16:38] LABS: Albumin 4.3 g/dL (3.8-4.8); Alpha 1 Globulin 0.3 g/dL (0.2-0.3); Alpha 2 Globulin 0.6 g/dL (0.5-0.9); Beta 1 Globulin 0.5 g/dL (0.4-0.6); Gamma Globulin 1.5 g/dL (0.8-1.7); Protein, Total 7.5 g/dL (6.1-8.1)
[2022-05-31 21:04] LABS: Haptoglobin 92 mg/dL (43-212)
== END 2022-05-27 16:20 | disposition home or self-care (01) ==
LOC: ANHLAB 16:23
PROVIDERS: Visit Provider Nurse Practitioner
DX: Z00.00 Encounter for general adult medical examination without abnormal findings (principal); M25.561 Pain in right knee; D64.9 Anemia, unspecified; Z79.899 Other long term (current) drug therapy; Z79.01 Long term (current) use of anticoagulants; I48.0 Paroxysmal atrial fibrillation; H40.9 Unspecified glaucoma; Z95.4 Presence of other heart-valve replacement; Q85.8 Other phakomatoses, not elsewhere classified; I51.7 Cardiomegaly; I35.0 Nonrheumatic aortic (valve) stenosis; G40.89 Other seizures; M17.11 Unilateral primary osteoarthritis, right knee; I25.84 Coronary atherosclerosis due to calcified coronary lesion
CPT/HCPCS: 36415; 80053; 82565; 82570; 83010; 83540; 83550; 83615; 84155; 84156; 84165; 84166; 84443; 84466; 85025; 85046; 86592

== ENCOUNTER 2022-05-28 12:05 | Outpatient (CLI) | payer OTHER, SELFPAY ==
[2022-05-28 14:48] LABS: IFOB Positive Control Positive; Immunochemical Fecal Occult Bl Negative (N)
== END 2022-05-28 12:06 | disposition home or self-care (01) ==
LOC: ANHLAB 12:07
PROVIDERS: Visit Provider Nurse Practitioner
DX: M25.551 Pain in right hip (principal); D64.9 Anemia, unspecified; K62.5 Hemorrhage of anus and rectum; Z79.899 Other long term (current) drug therapy; Z79.01 Long term (current) use of anticoagulants; I48.0 Paroxysmal atrial fibrillation; H40.9 Unspecified glaucoma; Z95.4 Presence of other heart-valve replacement; I35.0 Nonrheumatic aortic (valve) stenosis; M17.11 Unilateral primary osteoarthritis, right knee; G40.89 Other seizures; I25.84 Coronary atherosclerosis due to calcified coronary lesion; X58.XXXA Exposure to other specified factors, initial encounter
CPT/HCPCS: 82274

== ENCOUNTER 2023-01-19 16:44 | Outpatient (CLI) | payer OTHER, SELFPAY ==
[2023-01-19 17:21] LABS: Basophils Percent Auto 0.4 % (0.2-1.2); Eosinophils Absolute Auto 0.1 K/mm3 (0-0.3); Eosinophils Percent Auto 1.3 % (0-4.4); Hematocrit 40.8 % (42.0-52.0); Hemoglobin 13.1 g/dL (14.0-18.0); Immature Granulocyte Absolute 0.01 K/mm3 (0.00-0.031); Immature Granulocyte Percent A 0.1 % (0-0.5); Lymphocytes Absolute Auto 1.71 K/mm3 (0.9-3.2); Lymphocytes Percent Auto 22.8 % (18.3-44.2); Mean Corpuscular HGB Conc 32.1 g/dl (32-36); Mean Corpuscular Hemoglobin 30.8 pg (26-34); Mean Platelet Volume 9.5 fl (7.4-10.4); Monocytes Absolute Auto 0.7 K/mm3 (0.1-0.6); Monocytes Percent Auto 9.6 % (2.6-8.5); Neutrophils Absolute Auto 4.9 K/mm3 (1.3-6.7); Neutrophils Percent Auto 65.8 % (45.5-73.1); Platelet Count Result 198 k/mm3 (150-375); Red Blood Count 4.25 M/mm3 (4.6-6.20); Red Cell Distribution Width 13.8 % (11.5-14.5); White Blood Count 7.5 K/mm3 (4.5-10.0)
[2023-01-19 17:38] LABS: Appearance Urine Clear (Clear); Bilirubin Urine Negative (Negative); Blood Urine Negative (Negative); Color Urine Yellow (Yellow); Glucose Urine UA Negative (Negative); Ketones Urine Negative (Negative); Leukocyte Esterase Ur Negative LEU/UL (Negative); Nitrate Urine Negative (Negative); Protein Urine Negative (Negative); Urobilinogen Urine 0.2 mg/dL (<2.0)
[2023-01-19 17:49] LABS: Add Urine Microscopic? NO
[2023-01-19 18:10] LABS: Free T4 Free Thyroxine 1.02 ng/mL (0.78-2.19)
[2023-01-19 18:38] LABS: Alanine Aminotransferase 36 U/L (6-50); Albumin Level 4.6 g/dL (3.5-5.1); Alkaline Phosphatase 82 U/L (38-126); Anion Gap 6 mmol/L (8-16); Aspartate Amino Transferase 39 U/L (17-59); Bilirubin,Total 0.6 mg/dL (0.2-1.3); Blood Urea Nitrogen 19 mg/dL (9-20); Carbon Dioxide 30 mmol/L (22-30); Chloride 103 mmol/L (98-107); Cholesterol 144 mg/dL (0-200); Estimated Glomerular Filt Rate > 60; Glucose 88 mg/dL (65-110); HDL Direct 53 mg/dL; Sodium 139 mmol/L (137-145); Triglycerides 78 mg/dL (<150)
[2023-01-19 18:50] LABS: LDL Cholesterol Direct 62 mg/dL
[2023-01-19 19:10] LABS: Prostate Specific Antigen 1.4 ng/mL (< OR = 4.0)
[2023-01-26 13:40] LABS: Testosterone Total 453 ng/dL (250-1100)
== END 2023-01-19 16:45 | disposition home or self-care (01) ==
LOC: ANHLAB 16:47
PROVIDERS: Visit Provider Nurse Practitioner
DX: M25.561 Pain in right knee (principal); Z00.00 Encounter for general adult medical examination without abnormal findings; D64.9 Anemia, unspecified; K62.5 Hemorrhage of anus and rectum; Z79.899 Other long term (current) drug therapy; Z79.01 Long term (current) use of anticoagulants; I48.0 Paroxysmal atrial fibrillation; H40.9 Unspecified glaucoma; S06.2X9S Diffuse traumatic brain injury with loss of consciousness of unspecified duration, sequela; Z95.4 Presence of other heart-valve replacement; I51.7 Cardiomegaly; I35.0 Nonrheumatic aortic (valve) stenosis; G40.89 Other seizures; M17.11 Unilateral primary osteoarthritis, right knee; I25.84 Coronary atherosclerosis due to calcified coronary lesion; Z12.5 Encounter for screening for malignant neoplasm of prostate
CPT/HCPCS: 36415; 80053; 80061; 81003; 82306; 84153; 84403; 84439; 84443; 85025

== ENCOUNTER 2023-07-20 16:37 | Outpatient (CLI) | payer OTHER, SELFPAY ==
[2023-07-20 17:43] LABS: Basophils Absolute Auto 0.1 K/mm3 (0.0-0.1); Basophils Percent Auto 0.7 % (0.2-1.2); Eosinophils Absolute Auto 0.1 K/mm3 (0-0.3); Eosinophils Percent Auto 1.5 % (0-4.4); Hematocrit 42.2 % (42.0-52.0); Hemoglobin 13.6 g/dL (14.0-18.0); Immature Granulocyte Absolute 0.01 K/mm3 (0.00-0.031); Immature Granulocyte Percent A 0.1 % (0-0.5); Lymphocytes Absolute Auto 1.91 K/mm3 (0.9-3.2); Lymphocytes Percent Auto 25.6 % (18.3-44.2); Mean Corpuscular HGB Conc 32.2 g/dl (32-36); Mean Corpuscular Hemoglobin 30.7 pg (26-34); Mean Corpuscular Volume 95.3 fl (80-100); Mean Platelet Volume 9.9 fl (7.4-10.4); Monocytes Absolute Auto 0.7 K/mm3 (0.1-0.6); Monocytes Percent Auto 9.8 % (2.6-8.5); Neutrophils Absolute Auto 4.7 K/mm3 (1.3-6.7); Neutrophils Percent Auto 62.3 % (45.5-73.1); Platelet Count Result 210 k/mm3 (150-375); Red Blood Count 4.43 M/mm3 (4.6-6.20); Red Cell Distribution Width 12.9 % (11.5-14.5); White Blood Count 7.5 K/mm3 (4.5-10.0)
[2023-07-20 19:27] LABS: Iron 85 ug/dL (49-181)
[2023-07-20 19:36] LABS: Transferrin 238 mg/dL (206-381)
[2023-07-20 19:39] LABS: Percent Iron Saturation 23 % (20-50)
== END 2023-07-20 16:38 | disposition home or self-care (01) ==
LOC: ANHLAB 16:39
PROVIDERS: Visit Provider Nurse Practitioner
DX: M25.561 Pain in right knee (principal); M17.11 Unilateral primary osteoarthritis, right knee; G40.89 Other seizures; I35.0 Nonrheumatic aortic (valve) stenosis; I51.7 Cardiomegaly; I25.84 Coronary atherosclerosis due to calcified coronary lesion; Q85.89 Other phakomatoses, not elsewhere classified; I48.0 Paroxysmal atrial fibrillation; S06.2X9S Diffuse traumatic brain injury with loss of consciousness of unspecified duration, sequela; K62.5 Hemorrhage of anus and rectum; D64.9 Anemia, unspecified; H40.9 Unspecified glaucoma; Z79.01 Long term (current) use of anticoagulants; Z79.899 Other long term (current) drug therapy; Z95.4 Presence of other heart-valve replacement; X58.XXXS Exposure to other specified factors, sequela
CPT/HCPCS: 36415; 82607; 83540; 83550; 84466; 85025

== ENCOUNTER 2024-01-20 11:08 | Outpatient (CLI) | payer OTHER, SELFPAY ==
[2024-01-20 11:37] LABS: Basophils Percent Auto 0.5 % (0.2-1.2); Eosinophils Absolute Auto 0.1 K/mm3 (0-0.3); Eosinophils Percent Auto 1.7 % (0-4.4); Hematocrit 41.9 % (42.0-52.0); Hemoglobin 13.2 g/dL (14.0-18.0); Immature Granulocyte Absolute 0.02 K/mm3 (0.00-0.031); Immature Granulocyte Percent A 0.3 % (0-0.5); Lymphocytes Absolute Auto 1.44 K/mm3 (0.9-3.2); Lymphocytes Percent Auto 22.4 % (18.3-44.2); Mean Corpuscular HGB Conc 31.5 g/dl (32-36); Mean Corpuscular Hemoglobin 30.9 pg (26-34); Mean Corpuscular Volume 98.1 fl (80-100); Mean Platelet Volume 9.6 fl (7.4-10.4); Monocytes Absolute Auto 0.6 K/mm3 (0.1-0.6); Monocytes Percent Auto 9.5 % (2.6-8.5); Neutrophils Absolute Auto 4.2 K/mm3 (1.3-6.7); Neutrophils Percent Auto 65.6 % (45.5-73.1); Platelet Count Result 189 k/mm3 (150-375); Red Blood Count 4.27 M/mm3 (4.6-6.20); Red Cell Distribution Width 13.2 % (11.5-14.5); White Blood Count 6.4 K/mm3 (4.5-10.0)
[2024-01-20 11:49] LABS: Alanine Aminotransferase 33 U/L (6-50); Albumin Level 4.1 g/dL (3.5-5.1); Alkaline Phosphatase 68 U/L (38-126); Anion Gap 6 mmol/L (8-16); Aspartate Amino Transferase 41 U/L (17-59); Bilirubin,Total 0.8 mg/dL (0.2-1.3); Blood Urea Nitrogen 18 mg/dL (9-20); Carbon Dioxide 29 mmol/L (22-30); Chloride 107 mmol/L (98-107); Cholesterol 114 mg/dL (0-200); Estimated Glomerular Filt Rate > 60; Glucose 99 mg/dL (65-110); HDL Direct 47 mg/dL; Potassium 4.2 mmol/L (3.4-5.0); Sodium 142 mmol/L (137-145); Triglycerides 85 mg/dL (<150)
[2024-01-20 12:00] LABS: LDL Cholesterol Direct 58 mg/dL
[2024-01-20 12:02] LABS: Iron 90 ug/dL (49-181)
[2024-01-20 12:11] LABS: Percent Iron Saturation 28 % (20-50)
[2024-01-20 12:20] LABS: Free T4 Free Thyroxine 0.93 ng/mL (0.78-2.19)
[2024-01-25 12:02] LABS: Testosterone Total 404 ng/dL (250-1100)
== END 2024-01-20 11:09 | disposition home or self-care (01) ==
DX: Z00.00 Encounter for general adult medical examination without abnormal findings (principal); M25.561 Pain in right knee; M17.11 Unilateral primary osteoarthritis, right knee; G40.89 Other seizures; I51.7 Cardiomegaly; Z95.4 Presence of other heart-valve replacement; I25.84 Coronary atherosclerosis due to calcified coronary lesion; I35.0 Nonrheumatic aortic (valve) stenosis; I48.0 Paroxysmal atrial fibrillation; Z79.01 Long term (current) use of anticoagulants; Z79.899 Other long term (current) drug therapy; D64.9 Anemia, unspecified
CPT/HCPCS: 36415; 80053; 80061; 83540; 83550; 84403; 84439; 84443; 85025